=== PATIENT | male | born 1945 | race Caucasian/White ===

== ENCOUNTER → 2018-09-11 08:17 | Outpatient (CLI) | payer OTHER, SELFPAY ==
[2018-09-11 08:48] LABS: Add Manual Diff / Slide Review NO; Basophils Absolute Auto 100 /uL (0-100); Basophils Percent Auto 0.9 % (0-2); Eosinophils Absolute Auto 200 /uL (0-450); Eosinophils Percent Auto 2.9 % (2-4); Hematocrit 47.3 % (41-53); Lymphocytes Absolute Auto 2500 /uL (1100-4500); Lymphocytes Percent Auto 31.6 % (25-40); Mean Corpuscular HGB Conc 33.9 % (30-36); Mean Corpuscular Hemoglobin 31.4 PG (26-34); Mean Corpuscular Volume 92.6 fL (80-100); Monocytes Absolute Auto 600 /uL (0-900); Monocytes Percent Auto 7.8 % (3-14); Neutrophils Absolute Auto 4500 /uL (1500-7000); Neutrophils Percent Auto 56.8 % (50-75); Platelet Count 245 X10^3/uL (150-400); Red Blood Cell Count 5.11 X10^6/uL (4.5-5.9); Red Cell Distribution Width 13.2 % (11.6-14.8)
[2018-09-11 09:05] LABS: Alanine Aminotransferase 31 IU/L (21-72); Albumin 4.5 g/dL (3.5-5.0); Albumin Globulin Ratio 1.5 (1.0-2.8); Alkaline Phosphatase 85 U/L (38-126); Aspartate Aminotransferase 22 IU/L (17-59); BUN Creatinine Ratio 12.7 (6-22); Bilirubin Total 0.6 mg/dL (0.2-1.3); Blood Urea Nitrogen 14 mg/dL (9-20); Calcium 9.7 mg/dL (8.4-10.2); Carbon Dioxide 28 mmol/L (22-32); Chloride 104 mmol/L (98-107); Cholesterol 305 mg/dL (140-199); Estimated Glomerular Filt Rate > 60.0 mL/min (>60); Globulin 3.1 g/dL (1.7-4.1); Glucose 99 mg/dL (80-110); HDL Cholesterol 37 mg/dL (40-60); HEMOLYSIS < 15 (0-50); LDL Cholesterol Calculated 219 mg/dL (<100); Potassium 4.7 mmol/L (3.4-5.1); Sodium 140 mmol/L (137-145); Total Protein 7.6 g/dL (6.3-8.2); Triglycerides 243 mg/dL (35-150)
[2018-09-11 09:35] LABS: Prostate Specific Antigen Scrn 1.63 ng/mL (0.1-4.0)
[2018-09-11 10:05] LABS: Thyroid Stimulating Hormone 1.29 uIU/mL (0.47-4.68)
== END ==
PROVIDERS: PCP Family Medicine; Visit Provider Family Medicine
DX: E78.5 Hyperlipidemia, unspecified (principal); Z12.5 Encounter for screening for malignant neoplasm of prostate
CPT/HCPCS: 36415; 80053; 80061; 84443; 85025; G0103

== ENCOUNTER → 2018-10-16 09:22 | Outpatient (CLI) | payer OTHER, SELFPAY ==
[2018-10-19 19:17] LABS: Fecal Immunochemical Test NOT DETECTED (NOT DETECTED)
== END ==
PROVIDERS: PCP Family Medicine; Visit Provider Family Medicine
DX: Z12.11 Encounter for screening for malignant neoplasm of colon (principal)
CPT/HCPCS: 82274

== ENCOUNTER 2019-12-20 09:20 | Observation (INO) | payer OTHER, SELFPAY ==
[2019-12-20] VITALS (8 sets, daily range): BP systolic 133–191; BP diastolic 71–94; PULSE 76–90; RESP 18–24; TEMP 36.7–36.8; O2SAT 95–97; BMI 25.1
--- NOTE | 2019-12-20 09:29 | DI.RAD.S_ITS ---
PROCEDURE: XR CHEST 1V INDICATIONS: chest pain TECHNIQUE: One view of the chest was acquired. COMPARISON: [facility], , CHEST 2 VIEW, 05/21/2011, 9:22. FINDINGS: Surgical changes and devices: None. Lungs and pleura: Linear left basilar opacities are present. There is trace blunting of the costophrenic angles. Mediastinum: Mediastinal contours appear normal. Heart size is normal. Bones and chest wall: No suspicious bony lesions. Overlying soft tissues appear unremarkable. IMPRESSION: Trace costophrenic angle blunting suggestive of effusions versus scarring. Linear left basilar opacities possibly atelectasis. Dictated by: Nhi Donald M.D. on 12/20/2019 at 9:46 Approved by: Nhi Donald M.D. on 12/20/2019 at 9:47
[2019-12-20 09:47] LABS: Add Manual Diff / Slide Review NO; Basophils Absolute Auto 100 /uL (0-100); Basophils Percent Auto 0.6 % (0-2); Eosinophils Absolute Auto 100 /uL (0-450); Eosinophils Percent Auto 0.9 % (2-4); Hematocrit 43.4 % (41-53); Hemoglobin 14.9 g/dL (13.5-17.5); Lymphocytes Absolute Auto 1800 /uL (1100-4500); Lymphocytes Percent Auto 14.6 % (25-40); Mean Corpuscular HGB Conc 34.2 % (30-36); Mean Corpuscular Hemoglobin 31.9 PG (26-34); Mean Corpuscular Volume 93.1 fL (80-100); Monocytes Absolute Auto 900 /uL (0-900); Monocytes Percent Auto 7.3 % (3-14); Neutrophils Absolute Auto 9300 /uL (1500-7000); Neutrophils Percent Auto 76.6 % (50-75); Platelet Count 227 X10^3/uL (150-400); Red Blood Cell Count 4.67 X10^6/uL (4.5-5.9); Red Cell Distribution Width 13.2 % (11.6-14.8); White Blood Cell Count 12.1 X10^3/uL (4.5-11.0)
[2019-12-20 09:53] LABS: INR 1.1 (0.9-1.3)
[2019-12-20 09:55] LABS: PTT Partial Thromboplastin Tim 36 SECONDS (26.4-36.2)
[2019-12-20 09:58] LABS: Alanine Aminotransferase 23 IU/L (<50); Albumin 4.6 g/dL (3.5-5.0); Albumin Globulin Ratio 1.3 (1.0-2.8); Alkaline Phosphatase 96 U/L (38-126); Aspartate Aminotransferase 25 IU/L (17-59); BUN Creatinine Ratio 16.5 (6-22); Bilirubin Total 0.7 mg/dL (0.2-1.3); Blood Urea Nitrogen 17 mg/dL (9-20); Calcium 9.8 mg/dL (8.4-10.2); Carbon Dioxide 31 mmol/L (22-32); Chloride 96 mmol/L (98-107); Creatine Kinase 69 U/L (55-170); Estimated Glomerular Filt Rate > 60.0 mL/min (>60); Globulin 3.6 g/dL (1.7-4.1); Glucose 179 mg/dL (80-110); HEMOLYSIS 16 (0-50); Lipase 38 U/L (23-300); Sodium 135 mmol/L (137-145); Total Protein 8.2 g/dL (6.3-8.2)
[2019-12-20 10:08] LABS: Troponin I < 0.012 ng/mL (0.01-0.034)
--- NOTE | 2019-12-20 10:09 | PC.NURSE ---
pt reports right chest pain started on friday, since last night about 1130pm he has been having difficultly breathing, and inability to take a deep breath due to the pain.
--- NOTE | 2019-12-20 10:09 | ED.CHESTPAIN ---
HPI - Chest Pain General Chief Complaint: Chest Pain Stated Complaint: CHEST PAIN/SHORTNESS OF BREATH Time Seen by Provider: 12/20/19 09:45 Source: patient Mode of arrival: Ambulatory History of Present Illness HPI narrative: 74-year-old gentleman with a history of claudication in the right lower extremity presents with significant dyspnea and right-sided chest pain. Symptoms started 2 days ago at 11:00 a.m. in the morning. Started with the right-sided sharp chest pain that turned into an achy discomfort. No radiation. He has been having trouble catching his breath due to the pain for the last 48 hours. Called his primary care physician this morning and was dyspneic enough that he was instructed to come directly to the emergency department. He has not had cardiac issues previously Related Data Previous Rx's Medication Instructions Recorded nifedipine 30 mg tablet,extended 30 mg PO DAILY #30 tab 09/21/19 release acetaminophen 650 mg PO Q6HR PRN 30 Days tab 12/20/19 apixaban See Rx Instructions .ROUTE 12/20/19 .COMPLEX 30 Days #74 each Allergies Allergy/AdvReac Type Severity Reaction Status Date / Time No Known Drug Allergies Allergy Verified 12/20/19 09:46 Review of Systems Review of Systems Narrative: Pertinent positive and negative findings as per HPI Since August he has noted numbness in the right foot from the ankle down at 1 point he was having some claudication symptoms with these has improved significantly and are no longer problematic for him. Remainder of review of systems is otherwise unremarkable for Constitutional: Fevers, chills, weakness ENT: No sore throat, neck pain, ear pain CV: Chest pain, palpitations, dyspnea on exertion Respiratory: Cough, wheeze, dyspnea GI: Nausea, vomiting, diarrhea, change in bowel habits, black or bloody stools : Dysuria, hematuria, flank pain MS: Muscle weakness, numbness, joint swelling or warmth Skin: Rashes, nonhealing lesions Neuro: Syncope, dizziness, tingling Psych: Depression, anxiety, suicidal ideation Endocrine: Fatigue, heat or cold intolerance, very dry skin Heme: Easy bruising or bleeding Allergy: Seasonal rhinorrhea, itchy eyes Patient History Medical History Claudication (Acute) Surgical History Status post hernia repair Family History Father Stroke Social History household members: spouse Smoking Status: Current some day smoker alcohol intake: former Smoking Status: Current every day smoker Exam Narrative Exam Narrative: General: Healthy appearing, mild distress secondary to right-sided chest pain and chest splinting. Able to give a complete and coherent history. Well-nourished well-developed HEENT: Moist mucous membranes, normal sclera with reactive pupils, Neck: No JVD, supple Respiratory: Lungs are clear to auscultation, no wheezing no rales no rhonchi. Mildly decreased breath sounds through the entire right lung field. Full and symmetrical air movement Cardiac: Regular rate and rhythm no murmurs no bruits Abdomen: Soft nontender good bowel tones, no flank pain Skin: Warm and dry, no rashes Neurologic: Grossly neurologically intact with no obvious asymmetries or abnormalities. Right foot has no sensation from the low ankle down to the toe. He is able to move the foot without any difficulty. Dorsalis pedis and posterior tibialis pulses are palpable bilaterally Extremities: No trauma, well perfused Psych: Cooperative, appropriate insight and affect Initial Vital Signs Initial Vital Signs: Vital Signs Temperature 98.3 F 12/20/19 09:46 Pulse Rate 90 12/20/19 09:46 Respiratory Rate 22 12/20/19 09:46 Blood Pressure 191/94 H 12/20/19 09:46 Pulse Oximetry 97 12/20/19 09:46 Course Orders Ordered: Discontinued Medications Acetaminophen (Tylenol) 650 mg PO Q6HR PRN PRN Reason: Fever/Mild Pain (1-3) Apixaban (Eliquis) 10 mg PO BID [facility] Last Admin: 12/20/19 19:48 Dose: 10 mg Documented by: HENRY Aspirin (Aspirin Chew) 324 mg PO NOW ONE Stop: 12/20/19 10:10 Last Admin: 12/20/19 10:18 Dose: 324 mg Documented by: NATHALIE Aspirin (Aspirin Ec) 81 mg PO DAILY [facility] Enoxaparin Sodium (Lovenox) 80 mg 1 mg/kg (80 mg) SUBCUT NOW ONE Stop: 12/20/19 11:24 Last Admin: 12/20/19 11:51 Dose: 80 mg Documented by: SCANAPO Heparin Sodium (Porcine) (Heparin) 6,400 unit 80 unit/kg (6400 unit) IV NOW ONE Stop: 12/20/19 11:21 Last Admin: 12/20/19 11:52 Dose: Not Given Documented by: SCANAPO Heparin Sodium/Dextrose (Heparin Drip) 25,000 unit in 500 mls @ 20 mls/hr IV CONT TODD; Protocol Nifedipine (Procardia Xl) 30 mg PO DAILY TODD Vital Signs Vital signs: Vital Signs - 8 hr 12/20/19 09:46 12/20/19 10:27 12/20/19 10:30 Temperature 98.3 F Pulse Rate 90 80 85 Respiratory Rate 22 21 19 Blood Pressure 191/94 H Blood Pressure [Right Arm] 138/76 133/71 Pulse Oximetry 97 95 96 12/20/19 11:00 Temperature Pulse Rate 82 Respiratory Rate 24 Blood Pressure Blood Pressure [Right Arm] 177/84 H Pulse Oximetry 96 MDM - Chest Pain Medical Records Data Attestation: I reviewed the patient's medical records. Lab Data Attestation: I reviewed the patient's lab results. Result diagrams: 12/20/19 09:35 12/20/19 09:35 Labs: Lab Results 12/20/19 12/20/19 12/20/19 Range/Units 09:35 09:35 09:35 WBC 12.1 H (4.5-11.0) X10^3/uL RBC 4.67 (4.5-5.9) X10^6/uL Hgb 14.9 (13.5-17.5) g/dL Hct 43.4 (41-53) % MCV 93.1 (80-100) fL MCH 31.9 (26-34) PG MCHC 34.2 (30-36) % RDW 13.2 (11.6-14.8) % Plt Count 227 (150-400) X10^3/uL Neut % (Auto) 76.6 H (50-75) % Lymph % (Auto) 14.6 L (25-40) % Greer % (Auto) 7.3 (3-14) % Eos % (Auto) 0.9 L (2-4) % Baso % (Auto) 0.6 (0-2) % Neut # (Auto) 9300 H (6765-9316) /uL Lymph # (Auto) 1800 (0695-7150) /uL Greer # (Auto) 900 (0-900) /uL Eos # (Auto) 100 (0-450) /uL Baso # (Auto) 100 (0-100) /uL PT 13.0 H (10.1-12.7) SECONDS INR 1.1 (0.9-1.3) APTT 36 (26.4-36.2) SECONDS D-Dimer (<230) ng/mL Sodium 135 L (137-145) mmol/L Potassium 4.0 (3.4-5.1) mmol/L Chloride 96 L (98-107) mmol/L Carbon Dioxide 31 (22-32) mmol/L BUN 17 (9-20) mg/dL Creatinine 1.03 (0.66-1.25) mg/dL Estimated GFR > 60.0 (>60) mL/min BUN/Creatinine Ratio 16.5 (6-22) Glucose 179 H (80-110) mg/dL Calcium 9.8 (8.4-10.2) mg/dL Total Bilirubin 0.7 (0.2-1.3) mg/dL AST 25 (17-59) IU/L ALT 23 (<50) IU/L Alkaline Phosphatase 96 (38-126) U/L Total Creatine Kinase 69 (55-170) U/L CK-MB (CK-2) TNP CK-MB (CK-2) Rel Index TNP Troponin I < 0.012 (0.01-0.034) ng/mL NT-Pro-B Natriuret Pep (<125) pg/mL Total Protein 8.2 (6.3-8.2) g/dL Albumin 4.6 (3.5-5.0) g/dL Globulin 3.6 (1.7-4.1) g/dL Albumin/Globulin Ratio 1.3 (1.0-2.8) Lipase 38 (23-300) U/L 12/20/19 12/20/19 Range/Units 09:35 09:35 WBC (4.5-11.0) X10^3/uL RBC (4.5-5.9) X10^6/uL Hgb (13.5-17.5) g/dL Hct (41-53) % MCV (80-100) fL MCH (26-34) PG MCHC (30-36) % RDW (11.6-14.8) % Plt Count (150-400) X10^3/uL Neut % (Auto) (50-75) % Lymph % (Auto) (25-40) % Greer % (Auto) (3-14) % Eos % (Auto) (2-4) % Baso % (Auto) (0-2) % Neut # (Auto) (7100-5126) /uL Lymph # (Auto) (4664-4319) /uL Greer # (Auto) (0-900) /uL Eos # (Auto) (0-450) /uL Baso # (Auto) (0-100) /uL PT (10.1-12.7) SECONDS INR (0.9-1.3) APTT (26.4-36.2) SECONDS D-Dimer 1589 H (<230) ng/mL Sodium (137-145) mmol/L Potassium (3.4-5.1) mmol/L Chloride (98-107) mmol/L Carbon Dioxide (22-32) mmol/L BUN (9-20) mg/dL Creatinine (0.66-1.25) mg/dL Estimated GFR (>60) mL/min BUN/Creatinine Ratio (6-22) Glucose (80-110) mg/dL Calcium (8.4-10.2) mg/dL Total Bilirubin (0.2-1.3) mg/dL AST (17-59) IU/L ALT (<50) IU/L Alkaline Phosphatase (38-126) U/L Total Creatine Kinase (55-170) U/L CK-MB (CK-2) CK-MB (CK-2) Rel Index Troponin I (0.01-0.034) ng/mL NT-Pro-B Natriuret Pep 54 (<125) pg/mL Total Protein (6.3-8.2) g/dL Albumin (3.5-5.0) g/dL Globulin (1.7-4.1) g/dL Albumin/Globulin Ratio (1.0-2.8) Lipase (23-300) U/L Imaging Data Chest x-ray: Radiologist's Impression: IMPRESSION: Trace costophrenic angle blunting suggestive of effusions versus scarring. Linear left basilar opacities possibly atelectasis. Dictated by: Nhi Donald M.D. on 12/20/2019 at 9:46 CT scan - chest: Radiologist's Impression: IMPRESSION: 1. Bilateral areas of pulmonary embolism most notable in the right lower lobe as above. 2. Numerous borderline enlarged mediastinal lymph nodes, possibly reactive in nature. Recommend interval followup to resolution. 3. Chronic interstitial changes with areas of superimposed patchy groundglass like opacities. The latter could be reflective of superimposed infection or inflammation. Recommend interval followup to document resolution. The above findings were discussed with Dr. Olivia Caldwell on 12/20/19 at 11:09 AM. Dictated by: Nhi Donald M.D. on 12/20/2019 at 11:07 [place] Narrative Medical decision making narrative: 74-year-old gentleman with significant right-sided chest pain, tachypnea and bilateral PE of undetermined etiology. He is hemodynamically stable and maintaining oxygen saturations on room air but definitely symptomatic secondary to pain with significant splinting behaviors to protect the right side. In consultation with Dr. Harrell, patient will be admitted via observation status and given therapeutic Lovenox at this point. There is no evidence of significant heart failure or acute coronary syndrome. No suggestion of pneumonia or other acute infection and CT scan does not suggest a Covid19 type picture nor does clinical history. Discharge Plan Departure Patient Disposition: Admitted as Observation Clinical Impression: Pulmonary embolism Qualifiers: Pulmonary embolism type: unspecified Chronicity: acute Acute cor pulmonale presence: unspecified Qualified Code(s): I26.99 - Other pulmonary embolism without acute cor pulmonale Discharge Date/Time: 12/20/19 12:22 Admit Date/Time: 12/20/19 11:38 Admit Provider: Kayden Harrell
[2019-12-20] MEDS: ASPIRIN 81 MG CHEW TAB 324 MG PO (10:18)
[2019-12-20 10:32] LABS: D Dimer 1589 ng/mL (<230)
[2019-12-20 10:40] LABS: NT-proBNP (BNP-Adult 18+) 54 pg/mL (<125)
--- NOTE | 2019-12-20 10:41 | DI.CT.S_ITS ---
PROCEDURE: CT ANGIO CHEST PE PROTOCOL INDICATIONS: Elevatd d dimer TECHNIQUE: After the administration of intravenous contrast, 2 mm thick sections acquired from the pulmonary apices to the posterior costophrenic angles. 3-dimensional maximum intensity projection (MIP) coronal and sagittal reformats were then acquired through the thorax. For radiation dose reduction, the following was used: automated exposure control, adjustment of mA and/or kV according to patient size. COMPARISON: [facility], CR, XR CHEST 1V, 12/20/2019, 9:38. FINDINGS: Image quality: Excellent. Pulmonary arteries: Filling defects are identified within the pulmonary arteries bilaterally. They are present at the first order branches immediately distal to the right and left main pulmonary arteries. They extend into the right upper, middle and lower lobes as well as the left lower lobe. No right heart strain is identified. Lungs and pleura: Lungs demonstrate scattered areas of interstitial thickening as well as patchy groundglass like opacities most prominent within the bases.. No pleural effusions or pneumothorax. Central and peripheral airways are patent. Mediastinum: Heart size is normal, without pericardial effusion. No mediastinal or hilar adenopathy by size criteria. However, there are numerous borderline enlarged mediastinal lymph nodes. Thoracic descending thoracic aorta demonstrates an appearance of a penetrating ulcer. No priors are available for comparison. Esophagus is normal in caliber, without hiatal hernia. Bones and chest wall: No suspicious bony lesions. Ribs and thoracic spine appear intact throughout. Thyroid gland demonstrates focal calcification within the right lobe. No axillary or supraclavicular adenopathy. Abdomen: Visualized upper abdominal solid organs appear normal in the early arterial phase of enhancement. IMPRESSION: 1. Bilateral areas of pulmonary embolism most notable in the right lower lobe as above. 2. Numerous borderline enlarged mediastinal lymph nodes, possibly reactive in nature. Recommend interval followup to resolution. 3. Chronic interstitial changes with areas of superimposed patchy groundglass like opacities. The latter could be reflective of superimposed infection or inflammation. Recommend interval followup to document resolution. The above findings were discussed with Dr. Olivia Caldwell on 12/20/19 at 11:09 AM. Dictated by: Nhi Donald M.D. on 12/20/2019 at 11:07 Approved by: Nhi Donald M.D. on 12/20/2019 at 11:17
--- NOTE | 2019-12-20 11:43 | DI.ECHO.S_ITS ---
[place] +---------+ [facility] +---------+ : : [address] : : : : [id number] : : : : Phone: [phone] Echocardiogram Report + + :Name: DARNELL ALLRED Study Date: 12/20/2019 Height: 70 in : :[facility] Weight: 175 lb : : Gender: Male BSA: 2.0 m2 : :: 1945 Age: 74 yrs BP: 133/71 mmHg: :Reason For Study: Bilateral PE : :Ordering Physician: Amy : :Hospitalist Performed By: Beulah Goodwin : :Referring: TAVON STILL : + + Interpretation Summary Normal both left and right ventricle size and function. The ejection fraction is 60-65%. Moderate aortic valve sclerosis. Procedure: A two-dimensional transthoracic echocardiogram with color flow and Doppler was performed. The study quality was technically adequate. There is no prior echocardiogram noted for this patient. The patient was in normal sinus rhythm during the exam. The patient had occasional PVCs during the exam. Left Ventricle: The left ventricle is normal in size and wall thickness. The ejection fraction is estimated to be 60-65%. There are no focal wall motion abnormalities. Diastolic parameters suggest probable normal left ventricular diastolic function and normal filling pressures. Right Ventricle: The right ventricle is normal in size and function. Atria: Both atria are normal in size. There is no Doppler evidence for an interatrial shunt. Mitral Valve: The mitral valve is normal in structure and function. There is trace mitral regurgitation. Aortic Valve: The aortic valve is trileaflet. The aortic valve opens well. There is moderate aortic valve sclerosis. There is no aortic valve stenosis. There is trace aortic regurgitation. Tricuspid Valve: The tricuspid valve is normal in structure and function. There is mild tricuspid regurgitation. Pulmonic Valve: The pulmonic valve is normal in structure and function. There is no pulmonic valvular regurgitation. Great Vessels: The aortic root is normal size. The dimensions of the ascending aorta are normal. The IVC is of normal diameter and collapses greater than 50% with a sniff. This suggests a low right atrial pressure of 3 mm Hg. Pericardium/ Pleura There is no pericardial effusion. There is no pleural effusion. MMode/2D Measurements & Calculations LVIDd: 5.1 cm Ao root diam: 3.4 cm LVIDs: 3.2 cm asc Aorta Diam: 3.2 cm FS: 36.5 % Ao Arch Diam (Prox Trans): 3.4 cm EPSS: 0.53 cm IVSd: 0.85 cm LVPWd: 0.85 cm LV conley. diameter/BSA (cm/m^2): 2.6 LV sys. diameter/BSA (cm/m^2): 1.6 LA A2 area: 17.9 cm2 RA long axis: 5.1 cm LA A4 area: 14.4 cm2 RA area: 17.4 cm2 LA length (vol): 4.6 cm RA vol: 50.3 ml LA vol: 47.2 ml RA : 25.5 ml/m2 LA vol index: 23.9 ml/m2 RVD1 (basal): 3.7 cm TAPSE: 3.0 cm Doppler Measurements & Calculations Ao V2 max: 110.7 cm/sec LVOT Max Remy: 90.6 cm/sec Ao V2 mean: 75.1 cm/sec LV V1 max P.3 mmHg Ao max P.9 mmHg LV V1 VTI: 17.7 cm Ao mean P.6 mmHg sev ratio: 0.85 Ao V2 VTI: 20.8 cm MV E max remy: 63.5 cm/sec TR max remy: 260.4 cm/sec MV A max remy: 78.3 cm/sec TR max P.1 mmHg MV E/A: 0.81 PA V2 max: 93.6 cm/sec Med Peak E' Remy: 7.1 cm/sec PA V2 mean: 64.5 cm/sec E/E' med: 8.9 PA mean P.9 mmHg Lat Peak E' Remy: 11.8 cm/sec PA pr(Accel): 41.3 mmHg E/E' lat: 5.4 E/e' average: 7.2 MV dec time: 0.28 sec Electronically signed by: Trip Ponce on Reading Physician:12/20/2019 06:16 PM
[2019-12-20] MEDS: ENOXAPARIN 100 MG/ML SYRINGE 80 MG SUBCUT (11:51)
--- NOTE | 2019-12-20 12:03 | P.HP_ITS ---
History of Present Illness History of Present Illness Date Patient Seen: 12/20/19 Time Patient Seen: 14:20 Chief complaint: CHEST PAIN/SHORTNESS OF BREATH Narrative: Tony Elizalde is a 74-year-old male with past medical history of hypertension who presented with right-sided pleuritic chest pain for the past 2 days to the emergency room. Patient describes the pain as sharp, localized to a point on his right anterior chest, that presents after episodes of deep breathing. He noticed it starting on December 17 and has continued to worsen so he decided to seek attention in the emergency room today. He complains of mild shortness of breath, and has been less active in sitting quite a bit at home due to the novel coronavirus. He denies any fevers, cough, headache, vision changes, palpitations, nausea, vomiting, abdominal pain, lower extremity edema, orthopnea. He states his right foot has been numb for the past 3 months and was undergoing outpatient workup for this, but has not obtained any imaging. He is a current everyday smoker, with at least a 30+ year pack history. He has cut down recently to about 1 pack every 1-3 weeks, and he has been trying to cut down since his right foot numbness has started. In the emergency room, patient was mildly tachypneic in the mid 20s, and hypertensive, but rest of vital signs are unremarkable and he was saturating well on room air. Chest x-ray showed trace costophrenic angle blunting suggestive of effusions versus scarring and Linear left basilar opacities possibly atelectasis. Initial lab evaluation showed a mild leukocytosis at 12.1, but otherwise unremarkable CBC. D-dimer was elevated at 1589, sodium was mildly low at 135. Initial troponin was negative, with repeat pending. Other laboratory evaluation was unremarkable. Given elevated D-dimer patient underwent a CTA which showed bilateral pulmonary emboli. Patient was given therapeutic Lovenox in the emergency room and admitted under observation status given concern by the ER provider for his tachypnea. Patient History Medical History Claudication (Acute) Surgical History Status post hernia repair Family & Social History Family History Father Stroke Safety & Behavioral: Feels Safe in Current Yes Environment Been Physically Hurt or No Threatened By a Person Tobacco & Substance use: Smoking Status Current every day smoker Meds Home Medications and Allergies Home Medications Medication Instructions Recorded Confirmed Type aspirin 81 mg tablet,delayed 81 mg PO DAILY 09/21/19 11/03/19 History release nifedipine 30 mg tablet,extended 30 mg PO DAILY #30 tab 09/21/19 11/03/19 Rx release Allergies Allergy/AdvReac Type Severity Reaction Status Date / Time No Known Drug Allergies Allergy Verified 12/20/19 09:46 Review of Systems Review of Systems Narrative: All other systems reviewed with the patient and are negative unless otherwise stated. Exam Vital Signs (past 8 hours): - 12/20/19 09:46 12/20/19 10:27 12/20/19 10:30 Temperature 98.3 F Pulse Rate 90 80 85 Respiratory Rate 22 21 19 Blood Pressure 191/94 H Blood Pressure [Right Arm] 138/76 133/71 Pulse Oximetry 97 95 96 12/20/19 11:00 12/20/19 11:30 Temperature Pulse Rate 82 85 Respiratory Rate 24 24 Blood Pressure Blood Pressure [Right Arm] 177/84 H 155/78 H Pulse Oximetry 96 95 Oxygen Delivery Method Room Air Narrative Exam Narrative: GENERAL APPEARANCE: Well developed, well nourished, in no acute distress. SKIN: Inspection of the skin reveals no rashes, ulcerations or petechiae. HEENT: Normocephalic atraumatic, extraocular muscles are intact, oropharynx is clear and mucous membranes are moist, neck is supple without adenopathy NECK: Supple and symmetric. There was no thyroid enlargement, and no tenderness, or masses were felt. CHEST: Normal AP diameter and normal contour without any kyphoscoliosis. LUNGS: Auscultation of the lungs revealed no wheezes, rhonchi, or rales. CARDIOVASCULAR: There was a regular rate and rhythm without any murmurs, flores ps, rubs. Peripheral pulses were 2+ and symmetric. ABDOMEN: Soft and nontender with normal bowel sounds. No ascites was noted. MUSCULOSKELETAL: There was no tenderness or effusions noted. Muscle strength and tone were normal. EXTREMITIES: No cyanosis, clubbing or edema. NEUROLOGIC: Alert and oriented x 3. Normal affect. Gait was normal. Strength is +5/5 in the Upper Extremities and Lower Extremities Bilaterally. Sensation to touch was diminished in his right lower extremity, to the ankle. States this is chronic. Objective ECG Impression: Normal sinus rhythm, no evidence of acute ischemia. Labs Result Diagrams: 12/20/19 09:35 12/20/19 09:35 Labs: Laboratory Results - last 24 hr 12/20/19 12/20/19 12/20/19 09:35 09:35 09:35 WBC 12.1 H RBC 4.67 Hgb 14.9 Hct 43.4 MCV 93.1 MCH 31.9 MCHC 34.2 RDW 13.2 Plt Count 227 Neut % (Auto) 76.6 H Lymph % (Auto) 14.6 L [place] % (Auto) 7.3 Eos % (Auto) 0.9 L Baso % (Auto) 0.6 Neut # (Auto) 9300 H Lymph # (Auto) 1800 [place] # (Auto) 900 Eos # (Auto) 100 Baso # (Auto) 100 PT 13.0 H INR 1.1 APTT 36 D-Dimer Sodium 135 L Potassium 4.0 Chloride 96 L Carbon Dioxide 31 BUN 17 Creatinine 1.03 Estimated GFR > 60.0 BUN/Creatinine Ratio 16.5 Glucose 179 H Calcium 9.8 Total Bilirubin 0.7 AST 25 ALT 23 Alkaline Phosphatase 96 Total Creatine Kinase 69 CK-MB (CK-2) TNP CK-MB (CK-2) Rel Index TNP Troponin I < 0.012 NT-Pro-B Natriuret Pep Total Protein 8.2 Albumin 4.6 Globulin 3.6 Albumin/Globulin Ratio 1.3 Lipase 38 12/20/19 12/20/19 09:35 09:35 WBC RBC Hgb Hct MCV MCH MCHC RDW Plt Count Neut % (Auto) Lymph % (Auto) [place] % (Auto) Eos % (Auto) Baso % (Auto) Neut # (Auto) Lymph # (Auto) [place] # (Auto) Eos # (Auto) Baso # (Auto) PT INR APTT D-Dimer 1589 H Sodium Potassium Chloride Carbon Dioxide BUN Creatinine Estimated GFR BUN/Creatinine Ratio Glucose Calcium Total Bilirubin AST ALT Alkaline Phosphatase Total Creatine Kinase CK-MB (CK-2) CK-MB (CK-2) Rel Index Troponin I NT-Pro-B Natriuret Pep 54 Total Protein Albumin Globulin Albumin/Globulin Ratio Lipase Assessment & Plan Assessment & Plan narrative: Tony Elizalde is a 74-year-old male with past medical history of hypertension who presented with right-sided pleuritic chest pain for the past 2 days to the emergency room. He is admitted under observation status for bilateral pulmonary embolism. He is currently pending an echocardiogram to evaluate for right heart strain, if negative he can be discharged home. 1. Bilateral pulmonary embolism, acute, present on admission -patient was given therapeutic Lovenox in the emergency room. Will start with therapeutic apixaban 10 mg x 7 days followed by 5 mg daily for least 6 months. -follow-up echocardiogram for evidence of right heart strain, if negative the patient can be discharged home with return precautions for worsening chest pain or shortness of breath. He has had 2-troponins and his EKG is reassuring. -patient will follow-up with his primary care provider in the next 1-2 weeks for recheck on his symptoms and continued anticoagulation. -given right foot numbness will obtain right lower extremity DVT to assess if this is the source of his PE. 2. Hypertension, chronic, stable -patient was hypertensive on admission, likely secondary to pain and anxiety. His blood pressure is markedly improved upon arrival to floor. -continue home nifedipine -will discontinue home aspirin given known known coronary artery disease as patient will discharge on therapeutic anticoagulation. Code: Full, surrogate decision maker is his if needed Dispo: Admit and her observation status, if ultrasound is unremarkable he can discharge home later this evening DVT: Given therapeutic Lovenox, will continue apixaban as noted above
--- NOTE | 2019-12-20 13:12 | PC.NURSE ---
Day shift: Pt on AC unit from ED at approx 1230. Pt moved himself from MC to bed and was able to take his clothes off and put on hospital gown. Oriented to room and call light. States that he gets week in the legs when OOB and ambulating. SOB with activity and talking. VS WNL. RA 95%. Lungs clear. denies any chest pain or nausea. Has urinal if needed. Bed alarm is on. Agrees to not get OOB w/o help from staff. Call light in reach.
--- NOTE | 2019-12-20 14:27 | DI.US.S_ITS ---
PROCEDURE: US PERIPH VENOUS LOW EXTREM RT INDICATIONS: R FOOT NUMBNESS, KNOWN PE, EVAL FOR DVT TECHNIQUE: Real-time imaging, as well as color and pulse Doppler interrogation, were performed of the lower extremity deep veins from the inguinal ligament to the popliteal fossa. COMPARISON: None. FINDINGS: The common femoral, femoral and popliteal veins are normally compressible, and free of intraluminal thrombus. Color and pulse Doppler demonstrate normal phasic intraluminal flow. There is normal augmentation response to distal compression maneuver. IMPRESSION: Negative for deep venous thrombosis of the right lower extremity. Dictated by: Jose Coyne M.D. on 12/20/2019 at 16:06 Approved by: Jose Coyne M.D. on 12/20/2019 at 16:07
[2019-12-20 14:33] LABS: Troponin I < 0.012 ng/mL (0.01-0.034)
--- NOTE | 2019-12-20 19:25 | PM.DS.1 ---
History of Present Illness History of Present Illness Date Patient Seen: 12/20/19 Time Patient Seen: 19:25 Chief complaint: CHEST PAIN/SHORTNESS OF BREATH Narrative: Tony Elizalde is a 74-year-old male with past medical history of hypertension who presented with right-sided pleuritic chest pain for the past 2 days to the emergency room. Patient describes the pain as sharp, localized to a point on his right anterior chest, that presents after episodes of deep breathing. He noticed it starting on December 17 and has continued to worsen so he decided to seek attention in the emergency room today. He complains of mild shortness of breath, and has been less active in sitting quite a bit at home due to the novel coronavirus. He denies any fevers, cough, headache, vision changes, palpitations, nausea, vomiting, abdominal pain, lower extremity edema, orthopnea. He states his right foot has been numb for the past 3 months and was undergoing outpatient workup for this, but has not obtained any imaging. He is a current everyday smoker, with at least a 30+ year pack history. He has cut down recently to about 1 pack every 1-3 weeks, and he has been trying to cut down since his right foot numbness has started. In the emergency room, patient was mildly tachypneic in the mid 20s, and hypertensive, but rest of vital signs are unremarkable and he was saturating well on room air. Chest x-ray showed trace costophrenic angle blunting suggestive of effusions versus scarring and Linear left basilar opacities possibly atelectasis. Initial lab evaluation showed a mild leukocytosis at 12.1, but otherwise unremarkable CBC. D-dimer was elevated at 1589, sodium was mildly low at 135. Initial troponin was negative, with repeat pending. Other laboratory evaluation was unremarkable. Given elevated D-dimer patient underwent a CTA which showed bilateral pulmonary emboli. Patient was given therapeutic Lovenox in the emergency room and admitted under observation status given concern by the ER provider for his tachypnea. Discharge Providers Provider Date of admission: 12/20/19 11:38 Discharge Date: 12/20/19 Primary care physician: Mikhail Miller MD Discharge provider: Kayden Harrell DO Summary Hospital Course Discharge Diagnosis: Please see below Hospital Course: Tony Elizalde is a 74-year-old male with past medical history of hypertension who presented with right-sided pleuritic chest pain for the past 2 days to the emergency room. He was admitted under observation status for bilateral pulmonary embolism. He had an echocardiogram which did not show evidence of R heart strain. He complained of R foot numbness which has been more chronic and being worked up as an outpatient, RLE DVT US was negative. 1. Bilateral pulmonary embolism, acute, present on admission -patient was given therapeutic Lovenox in the emergency room. Will start with therapeutic apixaban 10 mg x 7 days followed by 5 mg daily for at least 6 months. -troponins were negative x2. EKG reassuring. And TTE was unremarkable with no LV or RV dysfunction. -patient will follow-up with his primary care provider in the next 1-2 weeks for recheck on his symptoms and continued anticoagulation. -given right foot numbness obtained right lower extremity DVT to assess if this is the source of his PE, however this was negative. 2. Hypertension, chronic, stable -patient was hypertensive on admission, likely secondary to pain and anxiety. His blood pressure is markedly improved upon arrival to floor. -continue home nifedipine -will discontinue home aspirin given no known coronary artery disease as patient will discharge on therapeutic anticoagulation. Code: Full, surrogate decision maker is his if needed Dispo: Admit and her observation status, if ultrasound is unremarkable he can discharge home later this evening DVT: Given therapeutic Lovenox, will continue apixaban as noted above Exam Vital Signs (past 8 hours): - 12/20/19 11:30 12/20/19 13:20 12/20/19 13:44 Temperature 98.3 F Pulse Rate 85 76 Respiratory Rate 24 18 Blood Pressure 138/76 Blood Pressure [Right Arm] 155/78 H Pulse Oximetry 95 95 95 12/20/19 16:00 Temperature 98.0 F Pulse Rate 79 Respiratory Rate 18 Blood Pressure 146/82 H Blood Pressure [Right Arm] Pulse Oximetry 95 Oxygen Delivery Method Room Air Oxygen Flow Rate 0 Narrative Exam Narrative: GENERAL APPEARANCE: Well developed, well nourished, in no acute distress. SKIN: Inspection of the skin reveals no rashes, ulcerations or petechiae. HEENT: Normocephalic atraumatic, extraocular muscles are intact, oropharynx is clear and mucous membranes are moist, neck is supple without adenopathy NECK: Supple and symmetric. There was no thyroid enlargement, and no tenderness, or masses were felt. CHEST: Normal AP diameter and normal contour without any kyphoscoliosis. LUNGS: Auscultation of the lungs revealed no wheezes, rhonchi, or rales. CARDIOVASCULAR: There was a regular rate and rhythm without any murmurs, gallops, rubs. Peripheral pulses were 2+ and symmetric. ABDOMEN: Soft and nontender with normal bowel sounds. No ascites was noted. MUSCULOSKELETAL: There was no tenderness or effusions noted. Muscle strength and tone were normal. EXTREMITIES: No cyanosis, clubbing or edema. NEUROLOGIC: Alert and oriented x 3. Normal affect. Gait was normal. Strength is +5/5 in the Upper Extremities and Lower Extremities Bilaterally. Sensation to touch was diminished in his right lower extremity, to the ankle. States this is chronic. Objective Labs Result Diagrams: 12/20/19 09:35 12/20/19 09:35 Labs: Laboratory Results - last 24 hr 12/20/19 12/20/19 12/20/19 09:35 09:35 09:35 WBC 12.1 H RBC 4.67 Hgb 14.9 Hct 43.4 MCV 93.1 MCH 31.9 MCHC 34.2 RDW 13.2 Plt Count 227 Neut % (Auto) 76.6 H Lymph % (Auto) 14.6 L [place] % (Auto) 7.3 Eos % (Auto) 0.9 L Baso % (Auto) 0.6 Neut # (Auto) 9300 H Lymph # (Auto) 1800 [place] # (Auto) 900 Eos # (Auto) 100 Baso # (Auto) 100 PT 13.0 H INR 1.1 APTT 36 D-Dimer Sodium 135 L Potassium 4.0 Chloride 96 L Carbon Dioxide 31 BUN 17 Creatinine 1.03 Estimated GFR > 60.0 BUN/Creatinine Ratio 16.5 Glucose 179 H Calcium 9.8 Total Bilirubin 0.7 AST 25 ALT 23 Alkaline Phosphatase 96 Total Creatine Kinase 69 CK-MB (CK-2) TNP CK-MB (CK-2) Rel Index TNP Troponin I < 0.012 NT-Pro-B Natriuret Pep Total Protein 8.2 Albumin 4.6 Globulin 3.6 Albumin/Globulin Ratio 1.3 Lipase 38 12/20/19 12/20/19 12/20/19 09:35 09:35 13:54 WBC RBC Hgb Hct MCV MCH MCHC RDW Plt Count Neut % (Auto) Lymph % (Auto) [place] % (Auto) Eos % (Auto) Baso % (Auto) Neut # (Auto) Lymph # (Auto) [place] # (Auto) Eos # (Auto) Baso # (Auto) PT INR APTT D-Dimer 1589 H Sodium Potassium Chloride Carbon Dioxide BUN Creatinine Estimated GFR BUN/Creatinine Ratio Glucose Calcium Total Bilirubin AST ALT Alkaline Phosphatase Total Creatine Kinase CK-MB (CK-2) CK-MB (CK-2) Rel Index Troponin I < 0.012 NT-Pro-B Natriuret Pep 54 Total Protein Albumin Globulin Albumin/Globulin Ratio Lipase Discharge Plan Discharge Plan Patient Disposition: Home Discharge comment: you were admitted to the hospital with R chest pain and found to have bilateral pulmonary emboli. You were not requiring supplemental oxygen and there was no evidence of pulmonary embolism. Discharge orders & Medications Prescriptions: New acetaminophen 325 mg Tablet 650 mg PO Q6HR PRN (Reason: Fever/Mild Pain (1-3)) 30 Days RF: 0 apixaban 5 mg (74 tabs) tablets,dose pack See Rx Instructions .ROUTE .COMPLEX 30 Days Qty: 74 RF: 0 Continued nifedipine 30 mg tablet extended release 30 mg PO DAILY Qty: 30 RF: 1 Discontinued aspirin [Adult Aspirin Regimen] 81 mg tablet,delayed release (DR/EC) 81 mg PO DAILY RF: 0 Follow up/Referrals: Mikhail Miller MD [Primary Care Provider] - Discharge Health Status Health Concerns: Bilateral PE Diet/Activity/Treatments Diet: Diet as Tolerated Activity: As tolerated Visit Report/Discharge Packet Instructions: DI for Pulmonary Embolism Visit Report Forms: Patient Portal/API, Stroke Signs & Symptoms Discharge Data Primary Care Provider: Mikhail Miller Attending Provider: Kayden Harrell Admit Date/Time: 12/20/19 11:38 Discharges patient from system. Discharge Date/Time: 12/20/19 20:00 Quality VTE Deep Vein Thrombosis/Pulmonary Embolism Present on Admission: Yes
[2019-12-20] MEDS: APIXABAN 5 MG TABLET 10 MG PO (19:48)
--- NOTE | 2019-12-20 20:15 | PC.NURSE ---
Discharge Note Patient alert and oriented, VSS, RA, no complaints of chest pain or shortness of breath. Discharge instructions given to patient. no questions or concerns. PIV and tele removed. All belongings packed and given to patient along with discharge and follow-up instructions. Patient taken down via wheelchair to personal vehicle.
--- NOTE | 2019-12-20 20:21 | PC.NURSE ---
Pt was awaiting test results before D/C. HL RAC intact/patent.. Denies any discomfort. Call light w/in reach, bed alarm on for pt safety. Pt D/C home at 2000 per MD orders.
[2019-12-20 22:18] LABS: COVID19 Sendout Not Detected (Not Detect)
== END 2019-12-20 20:00 | disposition home or self-care (01) ==
LOC: ED 09:45 → AC 11:39
PROVIDERS: Admitting Provider Internal Medicine; Emergency Provider Emergency Medicine; PCP Family Medicine; Referring Provider Emergency Medicine; Visit Provider Internal Medicine
DX: I26.99 Other pulmonary embolism without acute cor pulmonale (principal); R07.9 Chest pain, unspecified; R06.00 Dyspnea, unspecified; Z03.818 Encounter for observation for suspected exposure to other biological agents ruled out; F17.210 Nicotine dependence, cigarettes, uncomplicated; I10 Essential (primary) hypertension
CPT/HCPCS: 36415; 71045; 71275; 80053; 82550; 83690; 83880; 84484; 85025; 85379; 85610; 85730; 87635; 93005; 93306; 93971; 96372; 99284; G0378; J1650; Q9967

== ENCOUNTER → 2019-12-29 09:51 | Outpatient (CLI) | payer OTHER, SELFPAY ==
[2019-12-20 13:23] VITALS: BMI 25.1
--- NOTE | 2019-12-29 09:58 | DI.CT.S_ITS ---
PROCEDURE: CT ABDOMEN PELVIS W CON INDICATIONS: Pulmonary Embolism TECHNIQUE: After the administration of oral and intravenous contrast, 5 mm thick sections acquired from the diaphragms to the symphysis. 5 mm thick coronal and sagittal reformats were performed. For radiation dose reduction, the following was used: automated exposure control, adjustment of mA and/or kV according to patient size. COMPARISON: None. FINDINGS: Image quality: Excellent. ABDOMEN: Lung bases: Lung bases are clear. Heart size is normal. Solid organs: Liver is normal in size and enhancement. Gallbladder is normal. Biliary system is non-dilated. Pancreas enhances normally. The there are occasional scattered punctate calcifications in the pancreatic tissue. No ductal dilatation. Spleen is normal in size and enhancement. No adrenal nodules. Kidneys are normal in size and enhancement, without hydronephrosis. Peritoneum and bowel: Stomach, small bowel, and colon loops are normal in caliber and wall thickness. Diverticulosis of the descending and sigmoid colon to a mild degree. No free fluid or air. Nodes and vessels: No retroperitoneal or mesenteric adenopathy. The distal abdominal aorta is mildly aneurysmal measuring 3.0 x 2.7 cm and demonstrating a circumferential mural thrombus and peripheral calcification. The aortic contour is mildly irregular. Miscellaneous: No ventral hernias. PELVIS: Genitourinary: Bladder wall thickness is normal. The prostate gland is moderately enlarged. Miscellaneous: No inguinal hernias or adenopathy. Moderate arterial calcification. Bones: No suspicious bony lesions. Degenerative disc loss at L5-S1. No vertebral body compression fractures. IMPRESSION: 1. No evidence of obvious neoplasm in the abdomen or pelvis. 2. Prostatomegaly is most likely BPH. 3. Occasional punctate calcifications in otherwise normal-appearing pancreas and is likely sequelae of remote/chronic pancreatitis versus a small vessel atherosclerosis. 4. Aneurysmal and atherosclerotic distal abdominal aorta. Dictated by: Narcisa Garcia M.D. on 12/29/2019 at 13:28 Approved by: Narcisa Garcia M.D. on 12/29/2019 at 13:45
[2019-12-29 10:26] LABS: BUN Creatinine Ratio 16.4 (6-22); Blood Urea Nitrogen 18 mg/dL (9-20); Calcium 10.1 mg/dL (8.4-10.2); Carbon Dioxide 29 mmol/L (22-32); Chloride 99 mmol/L (98-107); Estimated Glomerular Filt Rate > 60.0 mL/min (>60); Glucose 102 mg/dL (80-110); HEMOLYSIS < 15 (0-50); Potassium 4.5 mmol/L (3.4-5.1); Sodium 137 mmol/L (137-145)
== END ==
PROVIDERS: PCP Family Medicine; Referring Provider Family Medicine; Visit Provider Family Medicine
DX: Z01.812 Encounter for preprocedural laboratory examination (principal); I26.99 Other pulmonary embolism without acute cor pulmonale; K57.30 Diverticulosis of large intestine without perforation or abscess without bleeding; I71.4 Abdominal aortic aneurysm, without rupture; N40.0 Benign prostatic hyperplasia without lower urinary tract symptoms
CPT/HCPCS: 36415; 74177; 80048; Q9967

== ENCOUNTER → 2020-03-30 07:39 | Outpatient (CLI) | payer OTHER, SELFPAY ==
[2019-12-20 13:23] VITALS: BMI 25.1
[2020-03-30 08:43] LABS: BUN Creatinine Ratio 12.2 (6-22); Blood Urea Nitrogen 16 mg/dL (9-20); Calcium 10.7 mg/dL (8.4-10.2); Carbon Dioxide 28 mmol/L (22-32); Chloride 101 mmol/L (98-107); Estimated Glomerular Filt Rate 53.8 mL/min (>60); Glucose 108 mg/dL (80-110); HEMOLYSIS < 15 (0-50); Potassium 4.7 mmol/L (3.4-5.1); Sodium 138 mmol/L (137-145)
[2020-03-30 09:13] LABS: Prostate Specific Antigen Scrn 3.63 ng/mL (0.1-4.0)
== END ==
PROVIDERS: PCP Family Medicine; Referring Provider Family Medicine; Visit Provider Family Medicine
DX: N40.0 Benign prostatic hyperplasia without lower urinary tract symptoms (principal); Z12.5 Encounter for screening for malignant neoplasm of prostate
CPT/HCPCS: 36415; 80048; G0103

== ENCOUNTER → 2020-05-23 07:45 | Outpatient (CLI) | payer OTHER, SELFPAY ==
[2019-12-20 13:23] VITALS: BMI 25.1
[2020-05-23 10:06] LABS: Blood Urea Nitrogen 17 mg/dL (9-20); Calcium 9.3 mg/dL (8.4-10.2); Carbon Dioxide 29 mmol/L (22-32); Chloride 103 mmol/L (98-107); Cholesterol 297 mg/dL (140-199); Estimated Glomerular Filt Rate > 60.0 mL/min (>60); Glucose 86 mg/dL (80-110); HDL Cholesterol 39 mg/dL (40-60); HEMOLYSIS < 15 (0-50); LDL Cholesterol Calculated 204 mg/dL (<100); Potassium 4.3 mmol/L (3.4-5.1); Sodium 138 mmol/L (137-145); Triglycerides 269 mg/dL (35-150)
== END ==
PROVIDERS: PCP Family Medicine; Referring Provider Family Medicine; Visit Provider Family Medicine
DX: E78.2 Mixed hyperlipidemia (principal)
CPT/HCPCS: 36415; 80048; 80061

== ENCOUNTER 2020-07-09 14:18 | Emergency (ER) | payer OTHER, SELFPAY ==
[2019-12-20 13:23] VITALS: BMI 25.1
[2020-07-09 14:29] VITALS: BP 174/91; PULSE 87; RESP 16; TEMP 37.1; O2SAT 98
[2020-07-09] MEDS: TET,DIPH,PERTUSS(ACELL),VAC/PF 0.5 ML SYRINGE IM (14:53)
--- NOTE | 2020-07-09 16:30 | ED_ITS ---
HPI - Extremity Injury (Upper) <IRVIN Blunt - Last Filed: 07/09/20 19:09> General Chief Complaint: Extremity Injury, Upper Stated Complaint: LT PINKY FINGER INJURY/ POSS STITCHES Time Seen by Provider: 07/09/20 14:30 Source: patient Mode of arrival: Ambulatory Limitations: no limitations History of Present Illness HPI narrative: The patient is a 74-year-old male current smoker with history of blood thinners due to will clot on Xarelto who presents with a chief complaint of a laceration to his left 5th digit. He states he cut it while trying to catch a box and hit his finger on the corner. He states he removed tissue. States he has full range of motion of his finger cough puts pressure on it to try to get it to stop bleeding but he could not stop the bleeding so he came to the emergency department. He does not know when his last tetanus was. Related Data Previous Rx's Medication Instructions Recorded rivaroxaban 10 mg tablet 10 mg PO DAILY #90 tab 01/26/20 tamsulosin 0.4 mg capsule 0.4 mg PO BEDTIME #30 cap 03/29/20 atorvastatin 10 mg tablet 10 mg PO BEDTIME #30 tab 05/27/20 Allergies Allergy/AdvReac Type Severity Reaction Status Date / Time No Known Drug Allergies Allergy Verified 07/11/20 15:06 Review of Systems <IRVIN Blunt - Last Filed: 07/09/20 19:09> Review of Systems Narrative: GENERAL: Denies chills, fatigue, malaise, fever, sweats. HEENT: Denies sinus pain, ear pain, sore throat, difficulty swallowing, dizziness. RESPIRATORY: Denies dyspnea, cough, wheezing, hemoptysis, sputum. CARDIOVASCULAR: Denies chest pain, palpitations, orthopnea, edema, GASTROINTESTINAL: Denies nausea, vomiting, abdominal pain, diarrhea, constipation, melena. : Denies dysuria, frequency, incontinence, hematuria, urinary retention. MUSCULOSKELETAL: See HPI SKIN: See HPI NEUROLOGIC: Denies weakness, headache, numbness, change in speech, confusion, seizures, incoordination. PSYCHIATRIC: No concerning psychosocial issues. 12 point review of systems is negative except for those stated above Patient History <IRVIN Blunt - Last Filed: 07/09/20 19:09> Medical History (Updated 07/09/20 @ 16:37 [facility] Claudication Surgical History Status post hernia repair Family History Father Stroke Social History household members: spouse Smoking Status: Current every day smoker alcohol intake: former Smoking Status: Current every day smoker Substance Use Type: does not use Exam <IRVIN Blunt - Last Filed: 07/09/20 19:09> Narrative Exam Narrative: GENERAL: This is a well-nourished, well-developed patient, in no acute distress HEAD: Atraumatic. Normocephalic. No temporal or scalp tenderness. EYES: Pupils equal round and reactive. Extraocular motions intact. No scleral icterus. No injection or drainage. ENT: Nose without bleeding, purulent drainage or septal hematoma. Throat without erythema, tonsillar hypertrophy or exudate. Uvula midline. Airway patent. NECK: Trachea midline. No JVD or lymphadenopathy. Supple, nontender, no meningeal signs. CARDIOVASCULAR: Regular rate and rhythm RESPIRATORY: No cough. No increased respiratory effort. No accessory muscle use. EXTREMITIES: Left 5th digit with full range of motion. Able to flex and extend against resistance. Positive left radial pulse. Cap refill less than 2 seconds 5th digit left hand. NEURO: AOx3. SKIN: 1 cm of a lesion laceration noted to palmar lateral aspect of left 5th digit. No obvious muscle or tendon involvement. Oozing blood. Initial Vital Signs Initial Vital Signs: Vital Signs Temperature 98.8 F 07/09/20 14:29 Pulse Rate 87 07/09/20 14:29 Respiratory Rate 16 07/09/20 14:29 Blood Pressure 174/91 H 07/09/20 14:29 Pulse Oximetry 98 07/09/20 14:29 <Bhavana Carolina DO - Last Filed: 07/12/20 08:06> Initial Vital Signs Initial Vital Signs: Vital Signs Temperature 98.8 F 07/09/20 14:29 Pulse Rate 87 07/09/20 14:29 Respiratory Rate 16 07/09/20 14:29 Blood Pressure 174/91 H 07/09/20 14:29 Pulse Oximetry 98 07/09/20 14:29 Scores <IRVIN Blunt - Last Filed: 07/09/20 19:09> GCS [place] coma scale eye opening: Spontaneous Minnie coma scale verbal response: Orientated [place] coma scale motor response: Obey commands Minnie coma scale total score: 15 Course <IRVIN Blunt - Last Filed: 07/09/20 19:09> Orders Ordered: Discontinued Medications Diphtheria/Tetanus/Acell Pertussis (Tet,Diph,Pertuss(Acell),Vac/Pf 0.5 Ml Syringe) 0.5 ml IM .ONCE ONE Stop: 07/09/20 14:41 Last Admin: 07/09/20 14:53 Dose: 0.5 ml Documented by: LEONCIO Vital Signs Vital signs: Vital Signs - 8 hr 07/09/20 14:29 07/09/20 16:44 Temperature 98.8 F Pulse Rate 87 85 Respiratory Rate 16 16 Blood Pressure 174/91 H 144/79 H Pulse Oximetry 98 100 <Bhavana Carolina DO - Last Filed: 07/12/20 08:06> Orders Ordered: Discontinued Medications Diphtheria/Tetanus/Acell Pertussis (Tet,Diph,Pertuss(Acell),Vac/Pf 0.5 Ml Syringe) 0.5 ml IM .ONCE ONE Stop: 07/09/20 14:41 Last Admin: 07/09/20 14:53 Dose: 0.5 ml Documented by: LEONCIO Vital Signs Vital signs: Vital Signs - 8 hr 07/09/20 14:29 07/09/20 16:44 Temperature 98.8 F Pulse Rate 87 85 Respiratory Rate 16 16 Blood Pressure 174/91 H 144/79 H Pulse Oximetry 98 100 MDM - Extremity Injury (Upper) <IRVIN Blunt - Last Filed: 07/09/20 19:09> MDM Narrative Medical decision making narrative: The patient is a 74-year-old male who presents with a chief complaint of an avulsion laceration to the lateral aspect of his left 5th digit. Unfortunately nothing to suture. Patient declines x- ray. Tetanus updated. Wound care as per by nursing and hemostasis was obtained with Surgicel. Discussed at length monitoring for signs and symptoms of infection, follow-up with primary care provider in the next few days. Patient has been neurovascularly intact throughout his stay in the ER. No questions or concerns upon discharge states understanding return precautions as well as follow-up care. Discharge Plan Departure Patient Disposition: Home Clinical Impression: Laceration of finger Qualifiers: Encounter type: initial encounter Finger: little finger Damage to nail status: without damage Foreign body presence: without foreign body Laterality: left Qualified Code(s): S61.217A - Laceration without foreign body of left little finger without damage to nail, initial encounter Instructions: DI for Avulsion Laceration (Not Requiring Sutures) Activity Restrictions/Additional Instructions: Thank you for trusting us with your care today. As discussed, there was unfortunately nothing to suture with your wound. Instead we have placed material on it called Surgicel. This helps wounds heal and helps clots form. This can a fall off as the wound heals or be removed shortly. It is important that it is not removed to soon as this can cause repeat bleeding. Please follow-up with primary care provider. As discussed, please monitor for signs of infection such as extending redness etcetera Please follow-up with primary care provider in the next few days. Please do not submerge your wound into dirty water such as upon water 0 4 water as this can increase your chance of infection. Prescriptions: No Action Xarelto 10 mg tablet 10 mg PO DAILY Qty: 90 RF: 3 atorvastatin 10 mg tablet 10 mg PO BEDTIME Qty: 30 RF: 3 tamsulosin [Flomax] 0.4 mg capsule 0.4 mg PO BEDTIME Qty: 30 RF: 5 Referrals: Mikhail Miller MD [Primary Care Provider] - <Bhavana Carolina DO - Last Filed: 07/12/20 08:06> [facility] Twanature Attestation: I was immediately available in the department for consultation. Documentation has been reviewed. I agree with assessment and plan.
[2020-07-09 16:44] VITALS: BP 144/79; PULSE 85; RESP 16; O2SAT 100
== END 2020-07-09 16:44 | disposition home or self-care (01) ==
PROVIDERS: Emergency Provider Nurse Practitioner Family; PCP Family Medicine
DX: S61.217A Laceration without foreign body of left little finger without damage to nail, initial encounter (principal); W45.8XXA Other foreign body or object entering through skin, initial encounter; Z23 Encounter for immunization
CPT/HCPCS: 90471; 99281; 99283; 90715

== ENCOUNTER → 2020-08-01 08:11 | Outpatient (CLI) | payer OTHER, SELFPAY ==
[2019-12-20 13:23] VITALS: BMI 25.1
[2020-08-01 09:32] LABS: Cholesterol 210 mg/dL (140-199); HDL Cholesterol 40 mg/dL (40-60); LDL Cholesterol Calculated 120 mg/dL (<100); Triglycerides 248 mg/dL (35-150)
== END ==
PROVIDERS: PCP Family Medicine; Referring Provider Family Medicine; Visit Provider Family Medicine
DX: E78.2 Mixed hyperlipidemia (principal)
CPT/HCPCS: 36415; 80061

== ENCOUNTER → 2020-10-17 08:28 | Outpatient (CLI) | payer OTHER, SELFPAY ==
[2019-12-20 13:23] VITALS: BMI 25.1
[2020-10-17 09:18] LABS: Cholesterol 188 mg/dL (140-199); HDL Cholesterol 44 mg/dL (40-60); LDL Cholesterol Calculated 108 mg/dL (<100); Triglycerides 182 mg/dL (35-150)
== END ==
PROVIDERS: PCP Family Medicine; Referring Provider Family Medicine; Visit Provider Family Medicine
DX: E78.2 Mixed hyperlipidemia (principal)
CPT/HCPCS: 36415; 80061

== ENCOUNTER → 2020-10-21 11:35 | Outpatient (CLI) | payer OTHER, SELFPAY ==
[2019-12-20 13:23] VITALS: BMI 25.1
[2020-10-23 08:36] LABS: Fecal Immunochemical Test Negative (Negative)
== END ==
PROVIDERS: PCP Family Medicine; Referring Provider Family Medicine; Visit Provider Family Medicine
DX: E78.2 Mixed hyperlipidemia (principal)
CPT/HCPCS: 82274

== ENCOUNTER → 2021-10-26 08:09 | Outpatient (CLI) | payer OTHER, SELFPAY ==
[2019-12-20 13:23] VITALS: BMI 25.1
[2021-10-26 08:54] LABS: Add Manual Diff / Slide Review NO; Basophils Absolute Auto 0 /uL (0-100); Basophils Percent Auto 0.6 % (0-2); Eosinophils Absolute Auto 200 /uL (0-450); Eosinophils Percent Auto 2.9 % (2-4); Hematocrit 44.8 % (41-53); Hemoglobin 15.3 g/dL (13.5-17.5); Lymphocytes Absolute Auto 2000 /uL (1100-4500); Lymphocytes Percent Auto 32.8 % (25-40); Mean Corpuscular HGB Conc 34.1 % (30-36); Mean Corpuscular Hemoglobin 31.6 PG (26-34); Mean Corpuscular Volume 92.7 fL (80-100); Monocytes Absolute Auto 500 /uL (0-900); Monocytes Percent Auto 8.8 % (3-14); Neutrophils Absolute Auto 3400 /uL (1500-7000); Neutrophils Percent Auto 54.9 % (50-75); Platelet Count 182 X10^3/uL (150-400); Red Blood Cell Count 4.84 X10^6/uL (4.5-5.9); Red Cell Distribution Width 13.3 % (11.6-14.8); White Blood Cell Count 6.1 X10^3/uL (4.5-11.0)
[2021-10-26 09:01] LABS: Alanine Aminotransferase 32 IU/L (<50); Albumin 4.4 g/dL (3.5-5.0); Albumin Globulin Ratio 1.5 (1.0-2.8); Alkaline Phosphatase 80 U/L (38-126); Aspartate Aminotransferase 31 IU/L (17-59); Bilirubin Total 0.6 mg/dL (0.2-1.3); Blood Urea Nitrogen 15 mg/dL (9-20); Calcium 9.4 mg/dL (8.4-10.2); Carbon Dioxide 30 mmol/L (22-32); Chloride 104 mmol/L (98-107); Cholesterol 147 mg/dL (140-199); Estimated Glomerular Filt Rate > 60.0 mL/min (>60); Glucose 102 mg/dL (80-110); HDL Cholesterol 38 mg/dL (40-60); HEMOLYSIS < 15 (0-50); LDL Cholesterol Calculated 88 mg/dL (<100); Potassium 4.9 mmol/L (3.4-5.1); Sodium 139 mmol/L (137-145); Total Protein 7.4 g/dL (6.3-8.2); Triglycerides 107 mg/dL (35-150)
== END ==
PROVIDERS: PCP Family Medicine; Referring Provider Family Medicine; Visit Provider Family Medicine
DX: E78.2 Mixed hyperlipidemia (principal); F17.200 Nicotine dependence, unspecified, uncomplicated; F32.9 Major depressive disorder, single episode, unspecified
CPT/HCPCS: 36415; 80053; 80061; 85025

== ENCOUNTER → 2021-11-06 08:51 | Outpatient (CLI) | payer OTHER, SELFPAY ==
[2019-12-20 13:23] VITALS: BMI 25.1
[2021-11-07 10:51] LABS: Fecal Immunochemical Test Negative (Negative)
== END ==
PROVIDERS: PCP Family Medicine; Referring Provider Family Medicine; Visit Provider Family Medicine
DX: Z12.11 Encounter for screening for malignant neoplasm of colon (principal)
CPT/HCPCS: 82274

== ENCOUNTER 2021-12-03 17:46 | Emergency (ER) | payer OTHER, SELFPAY ==
[2019-12-20 13:23] VITALS: BMI 25.1
[2021-12-03 17:56] VITALS: BP 186/99; PULSE 73; RESP 16; TEMP 36.7; O2SAT 98
--- NOTE | 2021-12-03 18:04 | DI.US.S_ITS ---
PROCEDURE: [facility] VENOUS LOW EXTREM RT INDICATIONS: CALF REDNESS, SWELLING, PAINFUL TECHNIQUE: Real-time imaging, as well as color and pulse Doppler interrogation, were performed of the lower extremity deep veins from the inguinal ligament to the popliteal fossa. COMPARISON: [facility], [facility] VENOUS LOW EXTREM RT, 12/20/2019, 15:39. FINDINGS: The common femoral, femoral and popliteal veins are normally compressible, and free of intraluminal thrombus. Color and pulse Doppler demonstrate normal phasic intraluminal flow. There is normal augmentation response to distal compression maneuver. There is a thrombus in the greater saphenous vein starting from the distal thigh with multiple thrombosed varicosities noted in the calf area of redness. IMPRESSION: 1. No DVT in the right lower extremity. 2. Superficial vein thrombosis in the right lower extremity. Dictated by: Jasbir Page M.D. on 12/03/2021 at 18:39 Approved by: Jasbir Page M.D. on 12/03/2021 at 18:40
--- NOTE | 2021-12-03 21:34 | ED_ITS ---
HPI - Extremity Problem General Chief complaint: Extremity Problem,Nontraumatic Stated complaint: Red Streak Down Rt Leg, Swollen, Tender Time Seen by Provider: 12/03/21 21:27 History of Present Illness HPI Narrative: 76-year-old gentleman with a history of inguinal stenting and hyperlipidemia presents with a complaint of red streak down the medial aspect of his right calf with some mild fullness and tenderness. He began noticing it in the last 24-48 hours. He describes it as tender only with palpation, does not bother him when he is walking, it is not causing any calf claudication he has not noticed any fevers and he is not noticing any new lower extremity edema other than that associated with the area of concern itself. He reports no palpitations, dyspnea, orthopnea, chest pain, abdominal pain, vomiting or diarrhea. No paresthesias. Related Data Previous Rx's Medication Instructions Recorded atorvastatin 20 mg tablet 20 mg PO BEDTIME #90 tab 11/20/21 tamsulosin 0.4 mg capsule (Flomax) 0.4 mg PO BEDTIME #90 cap 11/29/21 Allergies Allergy/AdvReac Type Severity Reaction Status Date / Time No Known Drug Allergies Allergy Verified 12/03/21 18:01 Review of Systems Review of Systems Narrative: Remainder of complete review of systems is otherwise unremarkable except for that included in the HPI. Patient History Medical History (Updated 12/03/21 @ 21:40 by Olivia Caldwell MD) Claudication Surgical History Status post hernia repair Family History Father Stroke Social History household members: spouse Smoking Status: Current every day smoker alcohol intake: former Smoking Status: Current every day smoker Substance Use Type: does not use Exam Initial Vital Signs Initial Vital Signs: Vital Signs Temperature 98.1 F 12/03/21 17:56 Pulse Rate 73 12/03/21 17:56 Respiratory Rate 16 12/03/21 17:56 Blood Pressure 186/99 H 12/03/21 17:56 Pulse Oximetry 98 12/03/21 17:56 General: Alert appropriate in no acute distress Respiratory: Able to speak in full sentences, no obvious respiratory distress Skin: No obvious rashes, warm and dry Neurologic: Grossly intact no obvious asymmetries or abnormalities Psych: appropriate insight and affect, cooperative Extremity: Right lower extremity with a superficial thrombophlebitis extending approximately 20 cm down the medial aspect of the left calf. Not associated with any skin breakdown, infection. It is tender to the touch but not tender otherwise. He does not have specific edema to the remainder of his calf or ankle. He does have good capillary refill in the distal foot and ankle. Course Orders Ordered: ED Orders 12/03/21 18:04 US periph venous low extrem rt Stat Vital Signs Vital signs: Vital Signs - 8 hr 12/03/21 17:56 Temperature 98.1 F Pulse Rate 73 Respiratory Rate 16 Blood Pressure 186/99 H Pulse Oximetry 98 MDM - Extremity (Nontraumatic) Imaging Data US - DVT: Radiologist's Impression: FINDINGS:? The common femoral, femoral and popliteal veins are normally compressible, and free of intraluminal thrombus.? Color and pulse Doppler demonstrate normal phasic intraluminal flow.? There is normal augmentation response to distal compression maneuver. ?There is a thrombus in the greater saphenous vein starting from the distal thigh with multiple thrombosed varicosities noted in the calf area of redness. ? IMPRESSION:? 1. No DVT in the right lower extremity. 2. Superficial vein thrombosis in the right lower extremity.? ? ? Dictated by: Jasbir Page M.D. on 12/03/2021 at 18:39? ?? [facility] Narrative Medical decision making narrative: 76-year-old gentleman with history of claudication and bypass to the right leg presents with superficial claudication to medial vessel of his left calf. It is not particularly tender no signs of infection. No signs of deeper clot. Encouraged him to use a warm pack to the area gentle massage as he is able to tolerate and continue all usual activity and exercise. Because of his claudication and previous vascular surgery his vascular surgeon has recommended that he not use compression socks at all. At this time he is safe for home discharge Discharge Plan Departure Patient Disposition: Home Clinical Impression: Superficial thrombophlebitis Qualifiers: Superficial thrombophlebitis-Involved body area: lower extremity Laterality: right Qualified Code(s): I80.01 - Phlebitis and thrombophlebitis of superficial vessels of right lower extremity Activity Restrictions/Additional Instructions: Thank you for coming in today You do not have a blood clot in the deep venous system of your leg. You do have a blood clot in 1 of the smaller superficial blood vessels. Using heat, gentle massage and keeping the leg elevated can help with your having pain. You can go about all of your usual activities and continued exercise and walking typically helps this resolved. Because you had prior vascular surgery, your vascular surgery has recommended that you do not use compression socks. There is no need for any additional treatment at this time. Prescriptions: No Action tamsulosin [Flomax] 0.4 mg capsule 0.4 mg PO BEDTIME Qty: 90 3RF atorvastatin 20 mg tablet 20 mg PO BEDTIME Qty: 90 3RF Referrals: Declan Martin MD [Primary Care Provider] -
[2021-12-03 21:37] VITALS: BP 172/78; PULSE 63; RESP 18; O2SAT 97
--- NOTE | 2021-12-03 21:47 | PC.NURSE ---
Patient has prominent swelling noted along superficial varicose vein. Sudden onset with. Some redness noted. Do not appreciate warmth. Patient denies chest pain or SOB.
== END 2021-12-03 21:48 | disposition home or self-care (01) ==
PROVIDERS: Emergency Provider Emergency Medicine; PCP Family Medicine
DX: I80.01 Phlebitis and thrombophlebitis of superficial vessels of right lower extremity (principal); F17.200 Nicotine dependence, unspecified, uncomplicated
CPT/HCPCS: 93971; 99283; 99284

== ENCOUNTER → 2022-12-19 07:56 | Outpatient (CLI) | payer OTHER, SELFPAY ==
[2019-12-20 13:23] VITALS: BMI 25.1
[2022-12-19 09:00] LABS: Add Manual Diff / Slide Review NO; Basophils Absolute Auto 0 /uL (0-100); Basophils Percent Auto 0.7 % (0-2); Eosinophils Absolute Auto 200 /uL (0-450); Eosinophils Percent Auto 3.4 % (2-4); Hematocrit 42.3 % (41-53); Hemoglobin 14.6 g/dL (13.5-17.5); Lymphocytes Absolute Auto 1900 /uL (1100-4500); Lymphocytes Percent Auto 31.4 % (25-40); Mean Corpuscular HGB Conc 34.5 % (30-36); Mean Corpuscular Hemoglobin 30.9 PG (26-34); Mean Corpuscular Volume 89.8 fL (80-100); Monocytes Absolute Auto 600 /uL (0-900); Monocytes Percent Auto 9.8 % (3-14); Neutrophils Absolute Auto 3400 /uL (1500-7000); Neutrophils Percent Auto 54.7 % (50-75); Platelet Count 170 X10^3/uL (150-400); Red Blood Cell Count 4.71 X10^6/uL (4.5-5.9); Red Cell Distribution Width 13.3 % (11.6-14.8); White Blood Cell Count 6.2 X10^3/uL (4.5-11.0)
[2022-12-19 09:19] LABS: Alanine Aminotransferase 26 IU/L (<50); Albumin 3.9 g/dL (3.5-5.0); Albumin Globulin Ratio 1.6 (1.0-2.8); Alkaline Phosphatase 74 U/L (38-126); Aspartate Aminotransferase 24 IU/L (17-59); BUN Creatinine Ratio 14.7 (6-22); Bilirubin Total 0.6 mg/dL (0.2-1.3); Blood Urea Nitrogen 15 mg/dL (9-20); Calcium 8.9 mg/dL (8.4-10.2); Carbon Dioxide 30 mmol/L (22-32); Chloride 103 mmol/L (98-107); Cholesterol 162 mg/dL (140-199); Estimated Glomerular Filt Rate > 60 mL/min (>60); Globulin 2.4 g/dL (1.7-4.1); Glucose 97 mg/dL (80-110); HDL Cholesterol 45 mg/dL (40-60); HEMOLYSIS < 15 (0-50); LDL Cholesterol Calculated 95 mg/dL (<100); Potassium 4.5 mmol/L (3.4-5.1); Sodium 138 mmol/L (137-145); Total Protein 6.3 g/dL (6.3-8.2); Triglycerides 110 mg/dL (35-150)
[2022-12-19 09:40] LABS: Prostate Specific Antigen Scrn 2.44 ng/mL (0.1-4.0)
[2022-12-19 10:38] LABS: TSH w/ Reflex to FT4 0.81 uIU/mL (0.47-4.68)
== END ==
PROVIDERS: PCP Family Medicine; Referring Provider Family Medicine; Visit Provider Family Medicine
DX: E78.2 Mixed hyperlipidemia (principal); Z12.5 Encounter for screening for malignant neoplasm of prostate; F17.200 Nicotine dependence, unspecified, uncomplicated; I73.9 Peripheral vascular disease, unspecified; N40.0 Benign prostatic hyperplasia without lower urinary tract symptoms
CPT/HCPCS: 36415; 80053; 80061; 84443; 85025; G0103

== ENCOUNTER → 2022-12-23 09:31 | Outpatient (CLI) | payer OTHER, SELFPAY ==
[2019-12-20 13:23] VITALS: BMI 25.1
[2022-12-24 13:58] LABS: Fecal Immunochemical Test Negative (Negative)
== END ==
PROVIDERS: PCP Family Medicine; Referring Provider Family Medicine; Visit Provider Family Medicine
DX: Z12.11 Encounter for screening for malignant neoplasm of colon (principal)
CPT/HCPCS: 82274

== ENCOUNTER → 2023-01-09 09:50 | Outpatient (CLI) | payer OTHER, SELFPAY ==
[2019-12-20 13:23] VITALS: BMI 25.1
--- NOTE | 2023-01-09 09:51 | DI.CT.S_ITS ---
PROCEDURE: CT CHEST WO CON INDICATIONS: 30+ pack year smoking history TECHNIQUE: Noncontrast 5 mm thick sections acquired from the pulmonary apices to the posterior costophrenic angles. 1 mm lung window, 5 mm thick coronal and sagittal and 7 mm axial MIP reformats were then acquired. For radiation dose reduction, the following was used: automated exposure control, adjustment of mA and/or kV according to patient size. COMPARISON: [facility], CT, CT LOW DOSE LUNG CA SCREENING, 12/22/2021, 13:10. FINDINGS: Lungs and pleura: Mild emphysema. No consolidation or pleural effusion. No suspicious pulmonary nodule identified. Mediastinum: No pericardial effusion. Multivessel coronary artery calcifications and/or stents. Thoracic aorta and central pulmonary arteries are normal in size. Esophagus is normal in caliber. Bones and chest wall: Multilevel degenerative change of the visualized spine. No axillary or supraclavicular adenopathy by size criteria. Abdomen: Visualized upper abdominal solid organs and bowel loops appear normal in the absence of contrast. IMPRESSION: No suspicious pulmonary nodule identified. If clinically indicated Follow-up could be obtained in 12 months or other interval at clinical discretion. Dictated by: Bobby Aleman M.D. on 01/09/2023 at 14:17 Approved by: Bobby Aleman M.D. on 01/09/2023 at 14:40
== END ==
PROVIDERS: PCP Family Medicine; Referring Provider Family Medicine; Visit Provider Family Medicine
DX: Z87.891 Personal history of nicotine dependence (principal)
CPT/HCPCS: 71250

== ENCOUNTER → 2023-12-11 07:39 | Outpatient (CLI) | payer OTHER, SELFPAY ==
[2019-12-20 13:23] VITALS: BMI 25.1
[2023-12-11 08:48] LABS: Add Manual Diff / Slide Review NO; Basophils Absolute Auto 100 /uL (0-100); Eosinophils Absolute Auto 300 /uL (0-450); Hematocrit 42.9 % (41-53); Hemoglobin 14.6 g/dL (13.5-17.5); Lymphocytes Absolute Auto 2200 /uL (1100-4500); Lymphocytes Percent Auto 34.4 % (25-40); Mean Corpuscular Hemoglobin 30.2 PG (26-34); Mean Corpuscular Volume 88.9 fL (80-100); Monocytes Absolute Auto 700 /uL (0-900); Monocytes Percent Auto 10.7 % (3-14); Neutrophils Absolute Auto 3200 /uL (1500-7000); Neutrophils Percent Auto 49.9 % (50-75); Platelet Count 179 X10^3/uL (150-400); Red Blood Cell Count 4.83 X10^6/uL (4.5-5.9); Red Cell Distribution Width 13.5 % (11.6-14.8); White Blood Cell Count 6.4 X10^3/uL (4.5-11.0)
[2023-12-11 09:07] LABS: Alanine Aminotransferase 24 IU/L (<50); Albumin 4.3 g/dL (3.5-5.0); Albumin Globulin Ratio 1.7 (1.0-2.8); Alkaline Phosphatase 87 U/L (38-126); Aspartate Aminotransferase 25 IU/L (17-59); BUN Creatinine Ratio 12.5 (6-22); Bilirubin Total 0.6 mg/dL (0.2-1.3); Blood Urea Nitrogen 13 mg/dL (9-20); Calcium 9.6 mg/dL (8.4-10.2); Carbon Dioxide 29 mmol/L (22-32); Chloride 104 mmol/L (98-107); Cholesterol 176 mg/dL (140-199); Estimated Glomerular Filt Rate > 60 mL/min (>60); Globulin 2.6 g/dL (1.7-4.1); Glucose 99 mg/dL (80-110); HDL Cholesterol 41 mg/dL (40-60); HEMOLYSIS < 15 (0-50); LDL Cholesterol Calculated 109 mg/dL (<100); Potassium 4.3 mmol/L (3.4-5.1); Sodium 140 mmol/L (137-145); Total Protein 6.9 g/dL (6.3-8.2); Triglycerides 129 mg/dL (35-150)
[2023-12-11 09:32] LABS: TSH w/ Reflex to FT4 1.07 uIU/mL (0.47-4.68)
[2023-12-11 09:33] LABS: Prostate Specific Antigen 2.61 ng/mL (0.10-4.00)
== END ==
PROVIDERS: PCP Family Medicine; Referring Provider Family Medicine; Visit Provider Family Medicine
DX: E78.2 Mixed hyperlipidemia (principal); N40.1 Benign prostatic hyperplasia with lower urinary tract symptoms; I73.9 Peripheral vascular disease, unspecified; G60.9 Hereditary and idiopathic neuropathy, unspecified; Z79.899 Other long term (current) drug therapy
CPT/HCPCS: 36415; 80053; 80061; 84153; 84443; 85025

== ENCOUNTER → 2023-12-26 09:00 | Outpatient (CLI) | payer OTHER, SELFPAY ==
[2019-12-20 13:23] VITALS: BMI 25.1
== END ==
PROVIDERS: PCP Family Medicine; Referring Provider Family Medicine; Visit Provider Family Medicine
DX: Z12.11 Encounter for screening for malignant neoplasm of colon (principal)
CPT/HCPCS: 82274

== ENCOUNTER → 2024-01-02 13:05 | Outpatient (CLI) | payer OTHER, SELFPAY ==
[2019-12-20 13:23] VITALS: BMI 25.1
--- NOTE | 2024-01-02 13:07 | DI.CT.S_ITS ---
PROCEDURE: CT LUNG LOW DOSE SCREENING INDICATIONS: smoking history 30+ years, Quit 07/2022 TECHNIQUE: Noncontrast 2.0-2.5 mm thick sections acquired from the pulmonary apices to the posterior costophrenic angles. 7 mm thick axial MIP, and 5 mm coronal and sagittal reformats were then acquired. For radiation dose reduction, the following was used: automated exposure control, adjustment of mA and/or kV according to patient size. COMPARISON: [facility], CT, CT LOW DOSE LUNG CA SCREENING, 12/22/2021, 13:10. FINDINGS: Image quality: Diagnostic. Lower Neck: No enlarged lymph nodes. Thyroid: No thyroid nodules which require sonographic follow up, per consensus guidelines. Axillae: No enlarged lymph nodes. Chest Wall: Unremarkable. Bones: No aggressive appearing bony lesions. Lungs and Pleura: There is mild centrilobular emphysema. Scattered atelectasis in periphery of bilateral lung patel are seen. No pneumothorax or pleural effusions. No suspicious pulmonary nodules. No consolidations. Central and peripheral airway is patent. Heart: Heart size is normal. No pericardial effusion. Thoracic Vessels: The aorta and pulmonary arteries demonstrate normal size. 2 vessel coronary artery atherosclerotic calcifications are seen. Mediastinum and Jocelyn: No enlarged lymph nodes. Esophagus: No wall thickening. New hiatal hernia. Upper Abdomen: Visualized upper abdomen solid organs and bowel loops appear normal. IMPRESSION: No suspicious pulmonary nodules. LUNG-RADS 1, continued annual screening, if eligible. Clinically Significant Non-pulmonary Findings: 2 vessel coronary artery atherosclerotic calcifications. Dictated by: Charles Sanchez M.D. on 01/02/2024 at 15:34 Approved by: Charles Sanchez M.D. on 01/02/2024 at 15:46
--- NOTE | 2024-01-02 13:07 | DI.US.S_ITS ---
PROCEDURE: US ABD AORTA ANEURYSM SCREEN INDICATIONS: PAD TECHNIQUE: Real time scanning was performed of the aorta and iliac arteries, with image documentation. COMPARISON: None. FINDINGS: Aorta: Proximal aortic diameter measures 2.0 cm. Mid-aorta measures 2.3 cm. Distal aortic diameter is 2.4 cm. Iliac arteries: Right common iliac artery measures 1.1 cm. Left common iliac artery measures 0.9 cm. IMPRESSION: No infrarenal aortic aneurysm. Note: The distal aorta on comparison CT measures 2.6 cm using appropriate re-measuring techniques. Dictated by: Duane Evans M.D. on 01/02/2024 at 15:41 Approved by: Duane Evans M.D. on 01/02/2024 at 15:43
--- NOTE | 2024-01-02 13:07 | DI.MRI.S_ITS ---
PROCEDURE: MR STROKE Pre- and post-contrast brain MRI, non-contrast brain MR angiogram, pre- and postcontrast neck MR angiogram INDICATIONS: abnormal speech pattern, tremor TECHNIQUE: Brain: Noncontrast axial T1 spin echo, axial T2 fast spin echo, sagittal and axial FLAIR, coronal T2 fast spin echo, axial gradient echo, axial diffusion and ADC through the brain. After the administration of contrast, axial 3D VIBE of the cranial vasculature and brain. Brain MRA: Non-contrast 3-D time of flight MR angiogram, with multiple uzxkfnu-kpuqrkqsl-bsgizpnrdb (MIP) reformats performed. Neck MRA: Axial and sagittal TruFISP through the neck. Coronal dynamic MR angiogram during administration of contrast in the arterial and venous phases, with 3-dimenstional csfhchd-kakymmzqv-kyfanevfaf (MIP) reformats constructed from subtraction images. COMPARISON: None. FINDINGS: Image quality: Excellent. BRAIN: The ventricular system and cortical sulci demonstrate atrophy, consistent for the patient's stated age. There are areas of increased T2/FLAIR signal intensity within the periventricular and subcortical white matter. There is no acute intra-or extra axial fluid collection. No acute hemorrhage, mass lesion or midline shift. Brainstem is unremarkable. There are no areas of restricted diffusion. Globes are symmetrical. Sinuses are aerated. Osseous structures are intact. BRAIN MR ANGIOGRAM: Anterior circulation: Intracranial internal carotid arteries are normal in size and enhancement. The flow within the paired anterior cerebral arteries is normal and symmetric. The flow within the middle cerebral arteries is normal and symmetric. The anterior communicating artery is seen. No stenoses, occlusions, or aneurysms. Posterior circulation: Left vertebral artery dominance. The visualized portions of the vertebral arteries demonstrate normal caliber, and join to form a normal appearing basilar artery. The flow within the posterior cerebral arteries is normal and symmetric. No stenoses, occlusions, or aneurysms. NECK MR ANGIOGRAM: Carotids: Great vessels demonstrate a conventional anatomy as they arise from the aortic arch. The origins of the common carotid arteries appear patent. The calibers and courses of both common carotid arteries are normal. The bifurcation regions appear normal bilaterally. There is focal area of approximately 55% stenosis at the origin of the left internal carotid artery followed by focal area of dilation. Superior to the dilation approximately 1.3 cm from the origin there is a 2nd focus of stenosis approximately 30%. There is a focus of stenosis measuring approximately 70% at the origin of the right internal carotid artery. Short-segment high-grade stenosis, greater than 70% is present at the origin of the left external carotid artery. Posterior circulation: The origins of the vertebral arteries appear patent. More superior portions of both vertebral arteries demonstrate normal course and caliber, and join to form a normal appearing basilar artery. Miscellaneous: Subclavian arteries appear patent. Pre-contrast images through the neck show no soft tissue abnormalities. IMPRESSION: 1. No acute intracranial process. 2. Moderate atrophy and chronic microvascular ischemic changes. 3. Bilateral stenosis within the proximal portion of the internal carotid artery as described above most significant on the right. 4. High-grade stenosis at the origin of the left external carotid artery. Dictated by: Nhi Donald M.D. on 01/02/2024 at 16:38 Approved by: Nhi Donald M.D. on 01/02/2024 at 16:43
== END ==
PROVIDERS: PCP Family Medicine; Referring Provider Family Medicine; Visit Provider Family Medicine
DX: I65.23 Occlusion and stenosis of bilateral carotid arteries; I73.9 Peripheral vascular disease, unspecified; R25.1 Tremor, unspecified; E78.2 Mixed hyperlipidemia; R47.9 Unspecified speech disturbances; Z13.6 Encounter for screening for cardiovascular disorders; Z12.2 Encounter for screening for malignant neoplasm of respiratory organs; Z87.891 Personal history of nicotine dependence; J43.2 Centrilobular emphysema; I25.10 Atherosclerotic heart disease of native coronary artery without angina pectoris
CPT/HCPCS: 70544; 70549; 70553; 71271; 76706; A9579

== ENCOUNTER → 2024-11-05 08:11 | Outpatient (CLI) | payer OTHER, SELFPAY ==
[2019-12-20 13:23] VITALS: BMI 25.1
[2024-11-05 09:59] LABS: Cholesterol 176 mg/dL (140-199); HDL Cholesterol 44 mg/dL (40-60); LDL Cholesterol Calculated 98 mg/dL (<100); Triglycerides 168 mg/dL (35-150)
== END ==
PROVIDERS: PCP Family Medicine; Referring Provider Internal Medicine; Visit Provider Internal Medicine
DX: E78.5 Hyperlipidemia, unspecified (principal)
CPT/HCPCS: 36415; 80061

== ENCOUNTER → 2025-01-12 08:53 | Outpatient (CLI) | payer OTHER, SELFPAY ==
[2019-12-20 13:23] VITALS: BMI 25.1
[2025-01-12 10:16] LABS: Add Manual Diff / Slide Review NO; Basophils Absolute Auto 100 /uL (0-100); Basophils Percent Auto 0.8 % (0-2); Eosinophils Absolute Auto 200 /uL (0-450); Eosinophils Percent Auto 3.7 % (2-4); Hematocrit 45.1 % (41-53); Hemoglobin 15.4 g/dL (13.5-17.5); Lymphocytes Absolute Auto 1900 /uL (1100-4500); Lymphocytes Percent Auto 29.6 % (25-40); Mean Corpuscular HGB Conc 34.2 % (30-36); Mean Corpuscular Hemoglobin 31.4 PG (26-34); Mean Corpuscular Volume 91.9 fL (80-100); Monocytes Absolute Auto 500 /uL (0-900); Monocytes Percent Auto 7.6 % (3-14); Neutrophils Absolute Auto 3700 /uL (1500-7000); Neutrophils Percent Auto 58.3 % (50-75); Platelet Count 163 X10^3/uL (150-400); Red Blood Cell Count 4.91 X10^6/uL (4.5-5.9); Red Cell Distribution Width 12.9 % (11.6-14.8); White Blood Cell Count 6.4 X10^3/uL (4.5-11.0)
[2025-01-12 10:27] LABS: Hemoglobin A1C% w Est Avg Glu 5.6 % (4.0-6.0)
[2025-01-12 10:39] LABS: Alanine Aminotransferase 31 IU/L (<50); Albumin 4.3 g/dL (3.5-5.0); Albumin Globulin Ratio 1.7 (1.0-2.8); Alkaline Phosphatase 81 U/L (38-126); Aspartate Aminotransferase 30 IU/L (17-59); BUN Creatinine Ratio 10.5 (6-22); Bilirubin Total 0.8 mg/dL (0.2-1.3); Blood Urea Nitrogen 12 mg/dL (9-20); Calcium 9.4 mg/dL (8.4-10.2); Carbon Dioxide 25 mmol/L (22-32); Chloride 105 mmol/L (98-107); Cholesterol 154 mg/dL (140-199); Estimated Glomerular Filt Rate > 60 mL/min (>60); Globulin 2.6 g/dL (1.7-4.1); Glucose 95 mg/dL (70-99); HDL Cholesterol 42 mg/dL (40-60); HEMOLYSIS < 15 (0-50); LDL Cholesterol Calculated 81 mg/dL (<100); Potassium 4.4 mmol/L (3.4-5.1); Sodium 139 mmol/L (137-145); Total Protein 6.9 g/dL (6.3-8.2); Triglycerides 153 mg/dL (35-150)
[2025-01-12 11:08] LABS: Prostate Specific Antigen Scrn 2.42 ng/mL (0.1-4.0); TSH w/ Reflex to FT4 1.07 uIU/mL (0.47-4.68)
== END ==
PROVIDERS: PCP Family Medicine; Referring Provider Family Medicine; Visit Provider Family Medicine
DX: E78.2 Mixed hyperlipidemia (principal); Z13.1 Encounter for screening for diabetes mellitus; Z12.5 Encounter for screening for malignant neoplasm of prostate
CPT/HCPCS: 36415; 80053; 80061; 83036; 84443; 85025; G0103

== ENCOUNTER → 2025-02-01 14:50 | Outpatient (CLI) | payer OTHER, SELFPAY ==
[2019-12-20 13:23] VITALS: BMI 25.1
[2025-02-03 17:36] LABS: Fecal Immunochemical Test Negative (Negative)
== END ==
PROVIDERS: PCP Family Medicine; Referring Provider Family Medicine; Visit Provider Family Medicine
DX: Z12.11 Encounter for screening for malignant neoplasm of colon (principal)
CPT/HCPCS: 82274

== ENCOUNTER → 2025-02-15 08:39 | Outpatient (CLI) | payer OTHER, SELFPAY ==
[2019-12-20 13:23] VITALS: BMI 25.1
--- NOTE | 2025-02-15 08:42 | DI.CT.S_ITS ---
PROCEDURE: CT LUNG LOW DOSE SCREENING INDICATIONS: lung cancer screening TECHNIQUE: Noncontrast 2.0-2.5 mm thick sections acquired from the pulmonary apices to the posterior costophrenic angles. 7 mm thick axial MIP, and 5 mm coronal and sagittal reformats were then acquired. For radiation dose reduction, the following was used: automated exposure control, adjustment of mA and/or kV according to patient size. COMPARISON: [facility], CT, CT LUNG LOW DOSE SCREENING, 01/02/2024, 14:07. FINDINGS: Image quality: Diagnostic. Lower Neck: No enlarged lymph nodes. Thyroid: No thyroid nodules which require sonographic follow up, per consensus guidelines. Axillae: No enlarged lymph nodes. Chest Wall: Unremarkable. Bones: Unremarkable. Lungs and Pleura: No pneumothorax or pleural effusions. No consolidation or suspicious nodules. Heart: . Thoracic Vessels: The aorta and pulmonary arteries demonstrate normal size. Mediastinum and Jocelyn: No enlarged lymph nodes. Esophagus: No wall thickening. No hiatal hernia. Upper Abdomen: Visualized upper abdomen solid organs and bowel loops appear normal. IMPRESSION: No suspicious pulmonary nodules. LUNG-RADS 1; continued annual screening, if eligible. Clinically Significant Non-pulmonary Findings: None. Dictated by: Jeovany Peters M.D. on 02/15/2025 at 15:02 Approved by: Jeovany Peters M.D. on 02/15/2025 at 15:08
== END ==
PROVIDERS: PCP Family Medicine; Referring Provider Family Medicine; Visit Provider Family Medicine
DX: Z12.2 Encounter for screening for malignant neoplasm of respiratory organs (principal); Z87.891 Personal history of nicotine dependence
CPT/HCPCS: 71271

== ENCOUNTER 2025-03-30 09:55 | Emergency (ER) | payer OTHER, SELFPAY ==
[2019-12-20 13:23] VITALS: BMI 25.1
[2025-03-30] VITALS (9 sets, daily range): BP systolic 136–184; BP diastolic 74–90; PULSE 68–83; RESP 14–16; TEMP 36.6–36.8; O2SAT 93–96; BMI 27.2
--- NOTE | 2025-03-30 10:07 | DI.US.S_ITS ---
PROCEDURE: US PERIPH VENOUS LOW EXTREM LT INDICATIONS: Asymmetric swelling TECHNIQUE: Real-time imaging, as well as color and pulse Doppler interrogation, were performed of the lower extremity deep veins from the inguinal ligament to the popliteal fossa, with documentation of the visualized calf veins. COMPARISON: None. FINDINGS: The common femoral, femoral, popliteal, and the visualized calf veins are normally compressible, and free of intraluminal thrombus. Color and pulse Doppler demonstrate normal phasic intraluminal flow. There is normal augmentation response to distal compression maneuver. IMPRESSION: No findings of lower extremity deep venous thrombosis. Dictated by: Duane Evans M.D. on 03/30/2025 at 10:42 Approved by: Duane Evans M.D. on 03/30/2025 at 10:43
[2025-03-30 10:29] LABS: Add Manual Diff / Slide Review NO; Hematocrit 43.0 % (41-53); Hemoglobin 14.8 g/dL (13.5-17.5); Lymphocytes Absolute Auto 1900 /uL (1100-4500); Mean Corpuscular HGB Conc 34.4 % (30-36); Mean Corpuscular Hemoglobin 31.5 PG (26-34); Mean Corpuscular Volume 91.6 fL (80-100); Platelet Count 157 X10^3/uL (150-400)
[2025-03-30 10:39] LABS: Alanine Aminotransferase 28 IU/L (<50); Albumin 4.4 g/dL (3.5-5.0); Albumin Globulin Ratio 1.5 (1.0-2.8); Alkaline Phosphatase 77 U/L (38-126); Blood Urea Nitrogen 15 mg/dL (9-20); Calcium 9.6 mg/dL (8.4-10.2); Carbon Dioxide 25 mmol/L (22-32); Chloride 104 mmol/L (98-107); Estimated Glomerular Filt Rate > 60 mL/min (>60); Globulin 2.9 g/dL (1.7-4.1); Glucose 121 mg/dL (70-99); HEMOLYSIS 24 (0-50); Potassium 4.0 mmol/L (3.4-5.1); Sodium 140 mmol/L (137-145); Total Protein 7.3 g/dL (6.3-8.2)
--- NOTE | 2025-03-30 12:04 | ED.EXTPRO ---
HPI - Extremity Problem General Chief complaint: Extremity Problem,Nontraumatic Stated complaint: swollen left foot and ankle x3 days Time Seen by Provider: 03/30/25 10:00 Source: patient Mode of arrival: Ambulatory History of Present Illness HPI Narrative: 79-year-old gentleman with a history of hyperlipidemia, peripheral artery disease, hypertension who presents complaining of 3 days of increasing left foot and ankle pain and swelling. No obvious trauma or cuts. Has not had similar findings. He does have a previous history of a pulmonary embolus not currently anticoagulated. Not complaining of fevers, or chills. He is able to walk on the foot and lower extremity. No chest pain, palpitations, nausea vomiting or diarrhea. Related Data Home Medications ?Medication ?Instructions ?Recorded ?Confirmed aspirin 81 mg tablet,delayed 81 mg PO DAILY 12/17/22 03/30/25 release atorvastatin 80 mg tablet 80 mg PO DAILY 01/27/25 03/30/25 Previous Rx's ?Medication ?Instructions ?Recorded tamsulosin 0.4 mg capsule (Flomax) 0.4 mg PO BEDTIME #90 caps 01/31/25 cephalexin 500 mg capsule 500 mg PO TID #21 caps 03/30/25 Allergies Allergy/AdvReac Type Severity Reaction Status Date / Time No Known Drug Allergies Allergy Verified 03/30/25 10:06 Review of Systems Review of Systems Narrative: Pertinent positive and negative findings as per HPI Patient History Medical History History of smoking 30 or more pack years Claudication Surgical History Status post hernia repair Family History Father Stroke Social History household members: spouse alcohol intake: former Smoking Status: Unknown if ever smoked Exam Initial Vital Signs Initial Vital Signs: Vital Signs Temperature 98.3 F 03/30/25 09:58 Pulse Rate 83 03/30/25 09:58 Respiratory Rate 14 03/30/25 09:58 Blood Pressure 184/90 H 03/30/25 09:58 Pulse Oximetry 94 03/30/25 09:58 Oxygen Delivery Method Room Air 03/30/25 09:58 General: Healthy appearing, in no acute distress. Able to give a complete and coherent history. Well-nourished well-developed HEENT: Moist mucous membranes, normal sclera with reactive pupils, Neck: No JVD, supple Respiratory: Lungs are clear to auscultation, no wheezing no rales no rhonchi. Full and symmetrical air movement Cardiac: Regular rate and rhythm no murmurs no bruits Abdomen: Soft, nontender, no rebound or guarding, no flank pain Skin: Warm and dry, no rashes Neurologic: Grossly neurologically intact with no obvious asymmetries or abnormalities Extremities: Left lower extremity is slightly more swollen than the right. He has some erythema over the dorsum of the foot extending toward the ankle with no underlying obvious abscess. There was no tenderness over the plantar surface of the foot. No calf tenderness Psych: Cooperative, appropriate insight and affect Course Orders Ordered: ED Orders 03/30/25 10:07 US periph venous low extrem lt Stat 03/30/25 10:15 Complete Blood Count AUTO DIFF Stat Comprehensive Metabolic Panel Stat Discontinued Medications Cephalexin HCl (Cephalexin 250 Mg Capsule) 500 mg PO NOW ONE Stop: 03/30/25 12:18 Vital Signs Vital signs: Vital Signs - 8 hr 03/30/25 09:58 03/30/25 10:07 03/30/25 10:11 Temperature 98.3 F Pulse Rate 83 78 Pulse Rate [Left Dorsalis Pedis] 70 Respiratory Rate 14 Blood Pressure 184/90 H 184/90 H Pulse Oximetry 94 95 Oxygen Delivery Method Room Air 03/30/25 10:30 03/30/25 11:00 03/30/25 11:11 Temperature Pulse Rate 77 68 Pulse Rate [Left Dorsalis Pedis] Respiratory Rate Blood Pressure 136/74 Pulse Oximetry 96 93 Oxygen Delivery Method 03/30/25 11:11 03/30/25 11:30 03/30/25 11:30 Temperature Pulse Rate 69 69 Pulse Rate [Left Dorsalis Pedis] Respiratory Rate Blood Pressure 136/74 Pulse Oximetry 95 95 Oxygen Delivery Method MDM - Extremity (Nontraumatic) Lab Data 03/30/25 10:15 03/30/25 10:15 Labs: Lab Results 03/30/25 Range/Units 10:15 WBC 9.2 (4.5-11.0) X10^3/uL RBC 4.70 (4.5-5.9) X10^6/uL Hgb 14.8 (13.5-17.5) g/dL Hct 43.0 (41-53) % MCV 91.6 (80-100) fL MCH 31.5 (26-34) PG MCHC 34.4 (30-36) % RDW 13.4 (11.6-14.8) % Plt Count 157 (150-400) X10^3/uL Neut % (Auto) 65.8 (50-75) % Lymph % (Auto) 20.2 L (25-40) % [place] % (Auto) 10.1 (3-14) % Eos % (Auto) 2.7 (2-4) % Baso % (Auto) 1.2 (0-2) % Neut # (Auto) 6000 (7279-8864) /uL Lymph # (Auto) 1900 (2266-0254) /uL [place] # (Auto) 900 (0-900) /uL Eos # (Auto) 200 (0-450) /uL Baso # (Auto) 100 (0-100) /uL Sodium 140 (137-145) mmol/L Potassium 4.0 (3.4-5.1) mmol/L Chloride 104 (98-107) mmol/L Carbon Dioxide 25 (22-32) mmol/L BUN 15 (9-20) mg/dL Creatinine 0.93 (0.66-1.25) mg/dL Estimated GFR > 60 (>60) mL/min BUN/Creatinine Ratio 16.1 (6-22) Glucose 121 H (70-99) mg/dL Calcium 9.6 (8.4-10.2) mg/dL Total Bilirubin 0.7 (0.2-1.3) mg/dL AST 29 (17-59) IU/L ALT 28 (<50) IU/L Alkaline Phosphatase 77 (38-126) U/L Total Protein 7.3 (6.3-8.2) g/dL Albumin 4.4 (3.5-5.0) g/dL Globulin 2.9 (1.7-4.1) g/dL Albumin/Globulin Ratio 1.5 (1.0-2.8) [facility] Narrative Medical decision making narrative: CC: Left foot and ankle pain and swelling Complicating co-morbidities: Peripheral vascular disease, hyperlipidemia, prior pulmonary embolism Data collected from: patient Medical records reviewed: Primary care note from January 27 is reviewed Differential considered: Trauma, infection, gout, DVT Exam documented above, pertinent findings include: Minor erythema over the dorsum of the foot extending toward the ankle concerning for developing cellulitis without underlying abscess. The edema seems to be more localized to the foot and ankle rather than the calf. Remainder of exam is benign Lab Test results independently reviewed as above. Pertinent findings: CBC is unremarkable Chemistries are reassuring Imaging studies independently reviewed: Ultrasound of the left lower extremities is not show any evidence of DVT. Treatments: Oral Keflex Discussion: 79-year-old gentleman who complains of swelling in the foot and ankle on the left side increasing over the last 2-3 days. There was some minor warmth and redness over the dorsum of the foot without underlying abscess or tenderness over the dorsum of the foot that is concerning for a developing cellulitis. There is no report of trauma, no obvious skin breakdown. The edema is mild. There was no evidence of DVT, sepsis or congestive heart failure . I believe Keflex will be appropriate at this time prescription is sent to his pharmacy. Reviewed all findings with the patient. There was no indication for additional imaging or hospitalization today and he is safe for discharge Discharge Plan Departure Patient Disposition: Home Clinical Impression: Cellulitis of foot Instructions: DI for Cellulitis -- Adult Activity Restrictions/Additional Instructions: Thank you for coming in today Based on the bit of redness over the top of your foot I am concerned that you are developing skin infection. There is no sign of overwhelming infection or sepsis, you do not have a blood clot in your lower leg, the distribution of your pain and the clinical exam does not suggest gout. Going to have you complete 7 days of cephalexin. You were given the 1st dose of antibiotic in the emergency department. Keeping the foot elevated we will be helpful. It is okay to use ibuprofen or Tylenol to help with pain if needed. If you are having increasing pain, fevers or chills, shortness of breath any new symptoms or concerns you do need to return to the emergency department Prescriptions: New cephalexin 500 mg capsule 500 mg PO TID Qty: 21 0RF No Action tamsulosin [Flomax] 0.4 mg capsule 0.4 mg PO BEDTIME Qty: 90 3RF aspirin 81 mg tablet,delayed release (DR/EC) 81 mg PO DAILY atorvastatin 80 mg tablet 80 mg PO DAILY Referrals: Declan Martin MD [Primary Care Provider, Family Practice] Stand Alone Forms: Patient Portal/API
== END 2025-03-30 12:30 | disposition home or self-care (01) ==
PROVIDERS: Emergency Provider Emergency Medicine; PCP Family Medicine
DX: L03.116 Cellulitis of left lower limb (principal)
CPT/HCPCS: 36415; 80053; 85025; 93971; 99283; 99284